=== PATIENT | male | born 1945 | race Caucasian/White ===

== ENCOUNTER 2020-11-24 16:26 | Emergency (ER) | payer MEDICARE, OTHER, SELFPAY ==
[2020-11-24 16:32] VITALS: BP 125/73; PULSE 99; RESP 16; TEMP 36.7; O2SAT 95; BMI 27.0
--- NOTE | 2020-11-24 16:49 | ED_ITS ---
HPI - Nausea/Vomiting/Diarrhea General: Chief complaint: Nausea/Vomiting/Diarrhea Stated complaint: N/V/D Time Seen by Provider: 11/24/20 16:42 History of Present Illness: HPI Narrative: The patient comes to the ER complaining of 12 hours of nausea vomiting and diarrhea. He says he thinks he had some bad chicken yesterday evening at his granddaughter's birthday constitution party where she was cooking the food. No other sick members at that constitution party. He says he is unable to keep anything down and nothing sounds tasty to him at the moment. Denies significant abdominal pain but admits nausea. MD elicited complaint: nausea, vomiting and diarrhea Onset (ago): hour(s) (12) Description of vomiting: food contents Associated nausea: Yes Associated abdominal pain: No Location of pain: None Radiation: diffuse Severity: moderate Associated symtoms: Reports nausea; Denies anxiety, change in vision, chest pain, dizziness, fatigue, headache(s) or palpitations Review of Systems General: Reports: 10 or more systems reviewed and unremarkable except in HPI and below Const: Denies: fatigue Eyes: Denies: change in vision, blurry vision or eye redness ENMT: Denies: throat pain, swelling of lips/tongue, ear or mastoid pain or nasal congestion Card: Denies: chest pain, palpitations, irregular heart rhythm, edema, dyspnea on exertion or orthopnea Resp: Denies: dyspnea, productive cough or non-productive cough GI: Reports: nausea, vomiting and diarrhea; Denies: abdominal pain : Denies: flank pain, urinary frequency or urinary urgency Musc: Denies: neck pain, back pain, extremity pain, joint pain, joint redness, limited range of motion or muscle weakness Skin/Breast: Denies: rash, pruritus, erythema, skin pain or skin tenderness Neuro: Denies: headache(s), numbness in extremities, weakness in extremities, sensory changes, difficulty walking, dizziness, confusion or Slurred speech present Psych: Denies: anxiety or depression Endo: Denies: polyuria All/Imm: Denies: urticaria, throat swelling or tongue swelling Physical Exam Const: COMMON NORMALS: no acute distress, average body habitus, patient oriented x3, no limitations, healthy appearing, alert and well nourished GENERAL APPEARANCE: cooperative, comfortable, well kempt and well developed ORIENTATION/CONSCIOUSNESS: Yes awake, Yes oriented to person, Yes oriented to place and Yes oriented to time HENMT: COMMON NORMALS: normocephalic, external ears normal and Normal external nose present HEAD & SCALP: normal to inspection and normocephalic NOSE: Normal external nose present EXTERNAL EAR: Yes external ears normal MOUTH: Normal oral and palatal mucosa present THROAT: posterior oropharynx normal Eye: COMMON NORMALS: Equal, round and reactive pupils present and EOMs intact bilaterally GENERAL EYE: appearance normal, both eyes and all related structures PUPIL: Yes Equal, round and reactive pupils present Neck/C-Spine: COMMON NORMALS: full ROM, no lymphadenopathy, no meningeal signs and no JVD GENERAL: Yes normal visual inspection Lymph: LYMPHATIC: no lymphadenopathy noted Chest: COMMONS NORMALS: normal inspection of the chest and normal palpation of entire chest wall Resp: COMMON NORMALS: normal respiratory effort, No retractions, No use of accessory muscles, clear to auscultation bilaterally and percussion normal EFFORT & INSPECTION: Yes able to speak in complete sentences AUSCULTATION: clear to auscultation bilaterally PERCUSSION: percussion normal Cardio: COMMON NORMALS: no JVD, regular rate, regular rhythm, S1 normal heart sound present, S2 normal heart sound present and Peripheral pulses 2+ throughout RATE: regular rate RHYTHM: regular rhythm HEART SOUNDS: S1 normal heart sound present and S2 normal heart sound present PERIPHERAL PULSES: Peripheral pulses 2+ throughout GI: COMMON NORMALS: Normal to inspection, nondistended, normoactive bowel sounds present, Soft to palpation, non-tender and no masses INSPECTION: Yes normal to inspection PALPATION: Yes Soft to palpation : COMMON NORMALS: Yes no CVA tenderness BLADDER/KIDNEY EXAM: Yes no CVA tenderness Back/Pelvis: COMMON NORMALS: no CVA tenderness, thoracic and lumbar spine normal to inspection, no thoracic nor lumbar tenderness and thoraco-lumbar ROM normal Extremity: COMMON NORMALS: normal to inspection, full ROM, capillary refill normal, no joint enlargement and no pedal edema GENERAL: Yes normal exam except as noted Neuro: COMMON NORMALS: patient oriented x3, CN's II-XII intact bilaterally, moves all extremities, no focal motor deficits, no sensory deficits noted and gait normal SENSORIUM/ORIENTATION: Yes alert, Yes oriented to person, Yes clarice ented to place and Yes oriented to time MENINGEAL SIGNS: Yes no meningeal signs Psych: COMMON NORMALS: mental status grossly normal, Normal thought process present, cooperative, normal affect and speech normal APPEARANCE: Yes well kempt ATTITUDE: Yes calm SPEECH: Yes normal speech THOUGHT PROCESS: Normal thought process present Skin: COMMON NORMALS: no rashes or lesions noted GENERAL SKIN EXAM: no rashes or lesions noted Course Vital Signs: Vital signs: Vital Signs Temperature 98.1 F 11/24/20 16:32 Pulse Rate 88 11/24/20 17:03 Respiratory Rate 18 11/24/20 17:03 Blood Pressure 132/67 11/24/20 17:03 Pulse Oximetry 93 11/24/20 17:03 MDM - Nausea/Vomiting/Diarrhea MDM Narrative: Medical decision making narrative: Patient came to the ER with symptoms of food poisoning. He was given Zofran, IV fluids, and Phenergan and improved and was requesting discharge. Follow-up with primary care physician in a few days. ER with worsening symptoms Lab Data: Labs: Lab Results 11/24/20 11/24/20 Range/Units 17:00 17:00 WBC 9.0 (4.0-10.0) 10^3/ uL RBC 4.91 (4.1-5.3) 10^6/u L Hgb 16.1 (11.7-16.6) g/dL Hct 47.2 (42.0-52.0) % MCV 96.1 H (80-94) fL MCH 32.8 (28.0-34.0) pg MCHC 34.1 (30.0-36.0) g/dL RDW 13.2 (12.1-15.1) % Plt Count 180 (130-400) 10^3/c mm MPV 10.6 H (7.4-10.4) fL Neut % (Auto) 92.1 % Lymph % (Auto) 4.2 % [place] % (Auto) 3.1 % Eos % (Auto) 0.1 % Baso % (Auto) 0.3 % Neut # (Auto) 8.29 H (1.8-7.7) 10^3/u L Lymph # (Auto) 0.4 L (0.8-4.8) 10^3/u L [place] # (Auto) 0.3 (0.2-0.9) 10^3/u L Eos # (Auto) 0.0 (0.0-0.8) 10^3/u L Baso # (Auto) 0.0 (0.0-0.1) 10^3/u L Nucleated RBC % (a uto) 0 % Nucleated RBCs # 0.0 /100WBC Sodium 135 L (136-145) mmol/L Potassium 3.4 L (3.5-5.1) mmol/L Chloride 98 (98-107) mmol/L Carbon Dioxide 22 (22-29) mmol/L Anion Gap 18.4 (5-19) BUN 18 (8-23) mg/dL Creatinine 0.9 (0.7-1.2) mg/dL GFR Calculation Not Reportable Glucose 124 H (65-115) mg/dL Calculated Osmolal ity 283 L (285-295) mOsm/k g Calcium 9.0 (8.5-10.5) mg/dL Total Bilirubin 0.7 (0.15-1.2) mg/dL AST 42 H (0-40) U/L ALT 32 (0-41) U/L Alkaline Phosphata se 36 L (40-130) IU/L Total Protein 7.7 (6.6-8.7) g/dL Albumin 4.1 (3.5-5.2) g/dL Globulin 3.6 (1.3-4.6) g/dL Lipase 30 (13-60) U/L Discharge Plan Discharge Patient Disposition: Home Clinical Impression: Food poisoning Condition: Stable Prescriptions: New ondansetron 4 mg tablet,disintegrating 4 mg PO Q8H 5 Days Qty: 15 RF: 0 Discharge Orders: Discharge ED (Routine); Ordered 11/24/20 Ordered By: Mikey Olivas Referrals: [facility], [Primary Care Provider] - Discharge Diet: Advance as tolerated Discharge Activity: Resume usual activity Patient Instructions: Gastroenteritis (ED), Opioid Safety, Food Poisoning - Adult Activity Restrictions/Additional Instructions: You likely have food poisoning. Please drink clear liquids and soft foods for the next several hours until you feel like you can increase to solid foods. Use Zofran to help with your nausea. Return to the ER with worsening symptoms. Follow-up with your primary care physician in a couple days to monitor improvement of your symptoms. Coding Level of Care Code ED Clam Treader for Chg Fwd Exam Comprehensive
[2020-11-24 17:03] VITALS: BP 132/67; PULSE 88; RESP 18; O2SAT 93
[2020-11-24] MEDS: ondansetron 2 mg/ML SDV 2 mL 4 MG IVP (17:04)
[2020-11-24] MEDS: ketorolac 30 mg/mL INJ 15 MG IVP (17:04)
[2020-11-24] MEDS: sodium chloride 0.9% 1,000 ML 999 ML IV (17:05)
[2020-11-24 17:13] LABS: Basophils % 0.3 %; Eosinophils % 0.1 %; Hematocrit 47.2 % (42.0-52.0); Hemoglobin 16.1 g/dL (11.7-16.6); Lymphocytes # 0.4 10^3/uL (0.8-4.8); Lymphocytes % 4.2 %; Mean Corpuscular HGB Conc 34.1 g/dL (30.0-36.0); Mean Corpuscular Hemoglobin 32.8 pg (28.0-34.0); Mean Corpuscular Volume 96.1 fL (80-94); Mean Platelet Volume 10.6 fL (7.4-10.4); Monocytes # 0.3 10^3/uL (0.2-0.9); Monocytes % 3.1 %; Neutrophils # 8.29 10^3/uL (1.8-7.7); Neutrophils % 92.1 %; Nucleated Red Blood Cells % 0 %; Platelet Count 180 10^3/cmm (130-400); Red Blood Count 4.91 10^6/uL (4.1-5.3); Red Cell Distribution Width 13.2 % (12.1-15.1)
[2020-11-24 17:40] LABS: Alanine Aminotransferase 32 U/L (0-41); Albumin Level 4.1 g/dL (3.5-5.2); Alkaline Phosphatase 36 IU/L (40-130); Anion Gap 18.4 (5-19); Aspartate Amino Transferase 42 U/L (0-40); Blood Urea Nitrogen 18 mg/dL (8-23); Carbon Dioxide 22 mmol/L (22-29); Chloride 98 mmol/L (98-107); Globulin 3.6 g/dL (1.3-4.6); Glucose 124 mg/dL (65-115); Lipase 30 U/L (13-60); Osmolality Calculated 283 mOsm/kg (285-295); Potassium 3.4 mmol/L (3.5-5.1); Sodium 135 mmol/L (136-145); Total Bilirubin 0.7 mg/dL (0.15-1.2); Total Protein 7.7 g/dL (6.6-8.7)
[2020-11-24] MEDS: promethazine 25 mg/mL SDV 1 mL 50 MG IM (19:11)
[2020-11-24 21:05] VITALS: BP 120/86; PULSE 100; RESP 17; TEMP 36.7; O2SAT 96
== END 2020-11-24 21:08 | disposition home or self-care (01) ==
PROVIDERS: Emergency Provider Family Medicine
DX: A05.9 Bacterial foodborne intoxication, unspecified (principal)
CPT/HCPCS: 80053; 83690; 85025; 96361; 96372; 96374; 96375; 99283; J1885; J2405; J2550; J7030

== ENCOUNTER 2020-11-27 16:15 | Emergency (ER) | payer MEDICARE, OTHER, SELFPAY ==
[2020-11-27 16:22] VITALS: BP 126/76; PULSE 81; RESP 16; TEMP 36.6; O2SAT 98; BMI 28.2
--- NOTE | 2020-11-27 18:57 | ED_ITS ---
HPI - Nausea/Vomiting/Diarrhea General: Chief complaint: Nausea/Vomiting/Diarrhea Stated complaint: nausea, loose stool Time Seen by Provider: 11/27/20 18:46 Source: patient Mode of arrival: ambulatory Limitations: no limitations History of Present Illness: HPI Narrative: 75-year-old male states Wednesday he started having vomiting states he had nausea and vomiting since then. He states that he has had severe vomiting that is actually improved today but he states he now has diarrhea. He states that he feels dehydrated and is concerned he has got dehydrated. He states that his daughter and his has had the same symptoms and his is here being seen as well. He denies any fever. He states he does abdominal cramping he rates a 2 out of 10. Associated nausea: Yes Associated symtoms: Reports nausea; Denies chest pain, dysuria or headache(s) Review of Systems Const: Denies: fever(s), chills, body aches or change in appetite Eyes: Denies: blurry vision or eye discomfort ENMT: Denies: throat pain or dental pain Card: Denies: chest pain Resp: Denies: dyspnea GI: Reports: abdominal pain, nausea, vomiting and diarrhea : Denies: dysuria Musc: Denies: neck pain or back pain Skin/Breast: Denies: rash Neuro: Denies: headache(s) Psych: Denies: depression [place]/Lymph: Denies: easy bruising All/Imm: Denies: urticaria Physical Exam Const: COMMON NORMALS: no acute distress, patient oriented x3 and healthy appearing HENMT: COMMON NORMALS: normocephalic and atraumatic HEAD & SCALP: normocephalic and atraumatic Eye: COMMON NORMALS: Equal, round and reactive pupils present and EOMs intact bilaterally PUPIL: Yes Equal, round and reactive pupils present Neck/C-Spine: COMMON NORMALS: full ROM and supple Chest: COMMONS NORMALS: normal inspection of the chest and normal palpation of entire chest wall Resp: COMMON NORMALS: normal respiratory effort, No retractions, No use of accessory muscles and clear to auscultation bilaterally AUSCULTATION: clear to auscultation bilaterally Cardio: COMMON NORMALS: regular rate, regular rhythm and No murmurs present (Cardio) RATE: regular rate RHYTHM: regular rhythm GI: COMMON NORMALS: Normal to inspection, nondistended, normoactive bowel sounds present, Soft to palpation, non-tender and no masses PALPATION: Yes Soft to palpation Extremity: COMMON NORMALS: normal to inspection and full ROM Neuro: COMMON NORMALS: patient oriented x3, moves all extremities and no focal motor deficits Psych: COMMON NORMALS: mental status grossly normal, Normal thought process present and cooperative THOUGHT PROCESS: Normal thought process present Skin: COMMON NORMALS: no rashes or lesions noted and no wounds GENERAL SKIN EXAM: no rashes or lesions noted Course Vital Signs: Vital signs: Vital Signs Temperature 97.9 F 11/27/20 16:22 Pulse Rate 65 11/27/20 19:25 Respiratory Rate 16 11/27/20 19:25 Blood Pressure 141/89 11/27/20 19:25 Pulse Oximetry 98 11/27/20 19:25 MDM - Nausea/Vomiting/Diarrhea MDM Narrative: Medical decision making narrative: Judson presents here with vomiting with diarrhea that is likely viral in origin. He feels much improved after IV fluids. He did provide a stool sample and will send off for culture. Patient is stable for discharge. He has slight hypokalemia and will put him on a course of potassium. Lab Data: Labs: Lab Results 11/27/20 11/27/20 11/27/20 Range/Units 19:10 19:10 19:10 WBC 7.2 (4.0-10.0) 10^3/ uL RBC 4.88 (4.1-5.3) 10^6/u L Hgb 15.8 (11.7-16.6) g/dL Hct 46.4 (42.0-52.0) % MCV 95.1 H (80-94) fL MCH 32.4 (28.0-34.0) pg MCHC 34.1 (30.0-36.0) g/dL RDW 13.0 (12.1-15.1) % Plt Count 192 (130-400) 10^3/c mm MPV 10.4 (7.4-10.4) fL Neut % (Auto) 69.5 % Lymph % (Auto) 19.5 % [place] % (Auto) 7.8 % Eos % (Auto) 2.6 % Baso % (Auto) 0.3 % Neut # (Auto) 5.02 (1.8-7.7) 10^3/u L Lymph # (Auto) 1.4 (0.8-4.8) 10^3/u L [place] # (Auto) 0.6 (0.2-0.9) 10^3/u L Eos # (Auto) 0.2 (0.0-0.8) 10^3/u L Baso # (Auto) 0.0 (0.0-0.1) 10^3/u L Nucleated RBC % (a uto) 0 % Nucleated RBCs # 0.0 /100WBC Sodium 137 (136-145) mmol/L Potassium 3.2 L (3.5-5.1) mmol/L Chloride 96 L (98-107) mmol/L Carbon Dioxide 30 H (22-29) mmol/L Anion Gap 14.2 (5-19) BUN 12 (8-23) mg/dL Creatinine 0.9 (0.7-1.2) mg/dL GFR Calculation Not Reportable Glucose 101 (65-115) mg/dL Calculated Osmolal ity 284 L (285-295) mOsm/k g Lactic Acid 1.6 (0.5-2.2) mmol/L Calcium 8.2 L (8.5-10.5) mg/dL Total Bilirubin 0.7 (0.15-1.2) mg/dL AST 49 H (0-40) U/L ALT 36 (0-41) U/L Alkaline Phosphata se 39 L (40-130) IU/L Ammonia (16-60) umol/L Total Protein 7.7 (6.6-8.7) g/dL Albumin 3.9 (3.5-5.2) g/dL Globulin 3.8 (1.3-4.6) g/dL Lipase 106 H (13-60) U/L Urine Color (Yellow) Urine Appearance (CLEAR) Urine pH (5-7) Ur Specific Gravit y (1.005-1.030) Urine Protein (Negative) Urine Glucose (UA) (Normal) Urine Ketones (Negative) Urine Blood (Negative) Urine Nitrate (Negative) Urine Bilirubin (Negative) Urine Urobilinogen (Negative) mg/dL Ur Leukocyte Amira ase (Negative) 11/27/20 11/27/20 Range/Units 19:10 19:27 WBC (4.0-10.0) 10^3/ uL RBC (4.1-5.3) 10^6/u L Hgb (11.7-16.6) g/dL Hct (42.0-52.0) % MCV (80-94) fL MCH (28.0-34.0) pg MCHC (30.0-36.0) g/dL RDW (12.1-15.1) % Plt Count (130-400) 10^3/c mm MPV (7.4-10.4) fL Neut % (Auto) % Lymph % (Auto) % [place] % (Auto) % Eos % (Auto) % Baso % (Auto) % Neut # (Auto) (1.8-7.7) 10^3/u L Lymph # (Auto) (0.8-4.8) 10^3/u L [place] # (Auto) (0.2-0.9) 10^3/u L Eos # (Auto) (0.0-0.8) 10^3/u L Baso # (Auto) (0.0-0.1) 10^3/u L Nucleated RBC % (a uto) % Nucleated RBCs # /100WBC Sodium (136-145) mmol/L Potassium (3.5-5.1) mmol/L Chloride (98-107) mmol/L Carbon Dioxide (22-29) mmol/L Anion Gap (5-19) BUN (8-23) mg/dL Creatinine (0.7-1.2) mg/dL GFR Calculation Glucose (65-115) mg/dL Calculated Osmolal ity (285-295) mOsm/k g Lactic Acid (0.5-2.2) mmol/L Calcium (8.5-10.5) mg/dL Total Bilirubin (0.15-1.2) mg/dL AST (0-40) U/L ALT (0-41) U/L Alkaline Phosphata se (40-130) IU/L Ammonia 29 (16-60) umol/L Total Protein (6.6-8.7) g/dL Albumin (3.5-5.2) g/dL Globulin (1.3-4.6) g/dL Lipase (13-60) U/L Urine Color Yellow (Yellow) Urine Appearance Clear (CLEAR) Urine pH 6.5 (5-7) Ur Specific Gravit y 1.010 (1.005-1.030) Urine Protein Neg (Negative) Urine Glucose (UA) Norm (Normal) Urine Ketones Negative (Negative) Urine Blood Neg (Negative) Urine Nitrate Negative (Negative) Urine Bilirubin Neg (Negative) Urine Urobilinogen Norm (Negative) mg/dL Ur Leukocyte Amira ase Negative (Negative) Discharge Plan Discharge Patient Disposition: Home Clinical Impression: Vomiting, Diarrhea, Hypokalemia Condition: Stable Prescriptions: New potassium chloride 20 mEq packet 20 meq PO BID Qty: 10 RF: 0 No Action atorvastatin 20 mg tablet 20 mg PO DAILY RF: 0 chlorthalidone 25 mg tablet 12.5 mg PO DAILY RF: 0 potassium citrate 10 mEq (1,080 mg) tablet extended release 10 meq PO DAILY RF: 0 timolol maleate 0.5 % drops See Rx Instructions .ROUTE .COMPLEX RF: 0 ondansetron 4 mg tablet,disintegrating 4 mg PO Q8H PRN (Reason: NAUSEA/VOMITING) RF: 0 Discharge Orders: Discharge ED (Routine); Ordered 11/27/20 Ordered By: Deena Bolanos Referrals: [facility], [Primary Care Provider] - Discharge Diet: Advance as tolerated Discharge Activity: Resume usual activity Patient Instructions: Acute Nausea and Vomiting (ED), Acute Diarrhea (ED) Coding Level of Care Code ED Chronometer Assembler And Adjuster for Shawn Fwyisel Exam Comprehensive
[2020-11-27] MEDS: diphenoxylate/atropine Tablet 2 TAB PO (19:03)
[2020-11-27] MEDS: ondansetron 2 mg/ML SDV 2 mL 4 MG IVP (19:14)
[2020-11-27] MEDS: sodium chloride 0.9% 1,000 ML 999 ML IV (19:15)
[2020-11-27 19:25] VITALS: BP 141/89; PULSE 65; RESP 16; O2SAT 98
[2020-11-27 19:33] LABS: Basophils % 0.3 %; Eosinophils # 0.2 10^3/uL (0.0-0.8); Eosinophils % 2.6 %; Hematocrit 46.4 % (42.0-52.0); Hemoglobin 15.8 g/dL (11.7-16.6); Lymphocytes # 1.4 10^3/uL (0.8-4.8); Lymphocytes % 19.5 %; Mean Corpuscular HGB Conc 34.1 g/dL (30.0-36.0); Mean Corpuscular Hemoglobin 32.4 pg (28.0-34.0); Mean Corpuscular Volume 95.1 fL (80-94); Mean Platelet Volume 10.4 fL (7.4-10.4); Monocytes # 0.6 10^3/uL (0.2-0.9); Monocytes % 7.8 %; Neutrophils # 5.02 10^3/uL (1.8-7.7); Neutrophils % 69.5 %; Nucleated Red Blood Cells % 0 %; Platelet Count 192 10^3/cmm (130-400); Red Blood Count 4.88 10^6/uL (4.1-5.3); White Blood Count 7.2 10^3/uL (4.0-10.0)
[2020-11-27 19:51] LABS: Add Urine Microscopic? NO
[2020-11-27 19:59] LABS: Bilirubin Urine Neg (Negative); Blood Urine Neg (Negative); Glucose Urine UA Norm (Normal); Ketones Urine Negative (Negative); Leukocyte Esterase Urine Negative (Negative); Nitrate Urine Negative (Negative); Protein Urine Neg (Negative); Urine Appearance Clear (CLEAR); Urine Color Yellow (Yellow); Urobilinogen Urine Norm (Negative); pH Urine 6.5 (5-7)
[2020-11-27 20:00] VITALS: BP 131/72; PULSE 75; RESP 16; O2SAT 98
[2020-11-27 20:09] LABS: Lactic Sepsis W/Reflex 1.6 mmol/L (0.5-2.2)
[2020-11-27 20:10] LABS: Alanine Aminotransferase 36 U/L (0-41); Albumin Level 3.9 g/dL (3.5-5.2); Alkaline Phosphatase 39 IU/L (40-130); Anion Gap 14.2 (5-19); Aspartate Amino Transferase 49 U/L (0-40); Blood Urea Nitrogen 12 mg/dL (8-23); Calcium 8.2 mg/dL (8.5-10.5); Carbon Dioxide 30 mmol/L (22-29); Chloride 96 mmol/L (98-107); Globulin 3.8 g/dL (1.3-4.6); Glucose 101 mg/dL (65-115); Lipase 106 U/L (13-60); Osmolality Calculated 284 mOsm/kg (285-295); Potassium 3.2 mmol/L (3.5-5.1); Sodium 137 mmol/L (136-145); Total Bilirubin 0.7 mg/dL (0.15-1.2); Total Protein 7.7 g/dL (6.6-8.7)
[2020-11-27 20:16] LABS: Ammonia 29 umol/L (16-60)
[2020-11-27 20:30] VITALS: BP 145/69; PULSE 70; RESP 16; O2SAT 97
[2020-11-27] MEDS: potassium chloride ER 20 mEq Tablet 40 MEQ PO (20:52)
[2020-11-27 21:01] VITALS: BP 145/69; PULSE 72; RESP 16; TEMP 36.6; O2SAT 97
== END 2020-11-27 21:01 | disposition home or self-care (01) ==
PROVIDERS: Physician Assistant; Emergency Provider Emergency Medicine
DX: R11.10 Vomiting, unspecified (principal); R19.7 Diarrhea, unspecified; E87.6 Hypokalemia
CPT/HCPCS: 36415; 80053; 81003; 82140; 83605; 83690; 85025; 87493; 87506; 96361; 96374; 99283; J2405; J7030

== ENCOUNTER 2021-02-03 10:59 | Emergency (ER) | payer MEDICARE, OTHER, SELFPAY ==
[2021-02-03 11:43] VITALS: BP 135/69; PULSE 69; RESP 17; TEMP 36.7; O2SAT 97; BMI 27.4
--- NOTE | 2021-02-03 12:20 | ECG_ITS ---
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 Measurements Intervals [place] Rate: 55 P: 70 LA: 182 QRS: 44 QRSD: 87 T: 63 QT: 416 QTc: 400 Interpretive Statements SINUS BRADYCARDIA No previous ECG available for comparison Electronically Signed On 02-05-2021 7:59:42 CDT by Eyal Duke M.D. [id number]
--- NOTE | 2021-02-03 13:54 | XRR_ITS ---
PROCEDURE INFORMATION: Exam: XR Chest Exam date and time: 02/03/2021 1:58 PM Age: 75 years old Clinical indication: Cough; Patient HX: PT denies chest complaint, tingling left arm TECHNIQUE: Imaging protocol: XR of the chest. Views: 1 view. COMPARISON: No relevant prior studies available. FINDINGS: Lungs: Unremarkable. No consolidation. Pleural spaces: Unremarkable. No pleural effusion. No pneumothorax. Heart/Mediastinum: Unremarkable. No cardiomegaly. Bones/joints: Unremarkable. XR/XR chest 1V portable [id number] IMPRESSION: No acute findings.
--- NOTE | 2021-02-03 13:54 | CTR_ITS ---
PROCEDURE INFORMATION: Exam: CT Head Without Contrast Exam date and time: 02/03/2021 2:08 PM Age: 75 years old Clinical indication: Patient HX: Blurred vision, left arm pain, headache, HX of TIA TECHNIQUE: Imaging protocol: Computed tomography of the head without contrast. Radiation optimization: All CT scans at this facility use at least one of these dose optimization techniques: automated exposure control; mA and/or kV adjustment per patient size (includes targeted exams where dose is matched to clinical indication); or iterative reconstruction. COMPARISON: No relevant prior studies available. RADIATION DOSE METRICS: Total DLP (mGy-cm): 1637.56 FINDINGS: Brain: No acute appearing brain parenchymal abnormality. No intracranial hemorrhage. No extraaxial fluid collections. 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 There is diffuse cerebral atrophy. Cerebral ventricles: No hydrocephalus. Bones/joints: No calvarial fracture. Paranasal sinuses: The visualized paranasal sinuses are aerated. Mastoid air cells: The visualized mastoid air cells are aerated. Soft tissues: No acute soft tissue abnormality. CT/CT head wo con* [id number] IMPRESSION: No acute abnormality. Radiation Dose CTDIVOL = (mGy): DLP = 1637.56 (mGy-cm)
--- NOTE | 2021-02-03 13:55 | CTR_ITS ---
PROCEDURE INFORMATION: Exam: CT Cervical Spine Without Contrast Exam date and time: 02/03/2021 2:08 PM Age: 75 years old Clinical indication: Numbness; Prior surgery; Additional info: Trauma TECHNIQUE: Imaging protocol: Computed tomography images of the cervical spine without contrast. Radiation optimization: All CT scans at this facility use at least one of these dose optimization techniques: automated exposure control; mA and/or kV adjustment per patient size (includes targeted exams where dose is matched to clinical indication); or iterative reconstruction. COMPARISON: CR XR cervical spine 4-5V [id number] 10/03/2020 4:24 PM RADIATION DOSE METRICS: Total DLP (mGy-cm): 707.52 FINDINGS: Bones/joints: Fusion of the C5 and C6 vertebral bodies. Mild grade 1 degenerative spondylolisthesis at C4-C5. The facets align normally though there is multilevel bilateral facet arthropathy with an upper cervical spine predominance.The craniocervical junction is normal. The atlantodens interval is not widened. No acute fracture. Discs/Spinal canal/Neural foramina: Multilevel disc and uncovertebral joint degeneration, most prominently at C6-C7. Mild osseous central canal stenosis at C5-C6 and C6-C7. Degenerative osseous foraminal stenosis most severe on the right at C4-C5 and on the left at C3-C4. Lungs: The lung apices are normal. Soft tissues: No acute soft tissue abnormality. CT/CT cervical spin wo con* [id number] IMPRESSION: No acute osseous abnormality. Radiation Dose CTDIVOL = (mGy): DLP = 707.52 (mGy-cm)
--- NOTE | 2021-02-03 13:55 | W.ED.GENADLT ---
HPI - General Adult General: Chief complaint: General Medical Stated complaint: UNCOMFORTNESS IN L ARM Time Seen by Provider: 02/03/21 13:52 History of Present Illness: HPI narrative: This patient is a 75-year-old male who presents to the emergency department for concerns he might of had a TIA. 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 Patient states that past and he drove himself home. Patient also states that he has had issues with numbness to his left hand but this has been chronic for some time since he has had neck surgery. Patient states but this morning and upper posterior side of his left arm started have some numbness and a weird sensation. Patient is concerned because he did have a TIA approximately 10 years ago. We will do medical evaluation treat as needed. Onset (ago): day(s) Associated symptoms: Deny chest pain, dyspnea, headache(s), nausea, rash, palpitations or vomiting Review of Systems General: Reports: 10 or more systems reviewed and unremarkable except in HPI and below Const: Denies: fever(s), chills, body aches or fatigue Eyes: Denies: change in vision or blurry vision ENMT: Denies: throat pain, hoarseness or mouth pain Card: Denies: chest pain or palpitations Resp: Denies: dyspnea GI: Denies: nausea or vomiting : Denies: flank pain, dysuria, urinary frequency, urinary urgency or urinary hesitancy Musc: Denies: neck pain, back pain, extremity pain, extremity swelling, joint pain, joint swelling, joint redness, joint warmth or limited range of motion Skin/Breast: Denies: rash Neuro: Denies: headache(s) Psych: Denies: anxiety or depression Physical Exam Const: COMMON NORMALS: no acute distress, average body habitus, patient oriented x3, no limitations, healthy appearing, alert and well nourished HENMT: COMMON NORMALS: normocephalic, atraumatic, hearing grossly normal bilaterally, external ears normal, EAC's normal, TM's normal bilaterally, Normal external nose present, Normal nasal mucous membranes and turbinates present, moist oral mucous membranes, oropharynx normal, dentition normal and gingiva normal HEAD & SCALP: normocephalic and atraumatic NOSE: Normal external nose present and Normal nasal mucous membranes and turbinates present EXTERNAL EAR: Yes external ears normal EXTERNAL AUDITORY CANAL: EAC's normal TYMPANIC MEMBRANE: TM's normal bilaterally Neck/C-Spine: COMMON NORMALS: full ROM, no lymphadenopathy, supple, no meningeal signs, no JVD, Thyroid normal and No carotid bruits THYROID: Thyroid normal Chest: COMMONS NORMALS: normal inspection of the chest, normal palpation of entire chest wall, normal inspection of the breasts and normal palpation of the breasts Breast/axilla inspection: Yes normal inspection of the breasts BREAST/AXILLA PALPATION: Yes normal palpation of the breasts Resp: COMMON NORMALS: normal respiratory effort, No retractions, No use of accessory muscles, clear to auscultation bilaterally and percussion normal AUSCULTATION: clear to auscultation bilaterally PERCUSSION: percussion normal Cardio: COMMON NORMALS: no JVD, regular rate, regular rhythm, S1 normal heart sound present, S2 normal heart sound present, No gallops present (Cardio), No clicks present (Cardio), No murmurs present (Cardio), No rub (Cardio) and Peripheral pulses 2+ throughout RATE: regular rate RHYTHM: regular rhythm HEART SOUNDS: S1 normal heart sound present and S2 normal heart sound present PERIPHERAL PULSES: Peripheral pulses 2+ throughout GI: COMMON NORMALS: Normal to inspection, nondistended, normoactive bowel sounds present, Soft to palpation, non-tender, No hepatosplenomegaly present, no masses and no bruits PALPATION: Yes Soft to palpation and Yes No hepatosplenomegaly present : COMMON NORMALS: Yes no CVA tenderness BLADDER/KIDNEY EXAM: Yes no CVA tenderness Back/Pelvis: COMMON NORMALS: no CVA tenderness, thoracic and lumbar spine normal to inspection, no thoracic nor lumbar tenderness, thoraco-lumbar ROM normal and straight leg raise negative bilaterally Extremity: COMMON NORMALS: normal to inspection, full ROM, capillary refill normal, no joint enlargement, no clubbing, cyanosis or edema, no calf tenderness and no pedal edema Neuro: COMMON NORMALS: patient oriented x3 SENSORIUM/ORIENTATION: Yes alert MENINGEAL SIGNS: Yes no meningeal signs Course Reevaluation(s): Reevaluation #1: Negative evaluation emergency department. Patient states he feels normal and has had no complaints today. Time: 15:50 Vital Signs: Vital signs: Vital Signs Temperature 98.1 F 02/03/21 11:43 Pulse Rate 69 02/03/21 11:43 Respiratory Rate 17 02/03/21 11:43 Blood Pressure 135/69 02/03/21 11:43 Pulse Oximetry 97 02/03/21 11:43 MDM - General Adult MDM Narrative: Medical decision making narrative: Patient has a history of TIA. Also complains of radiculopathy related to the neck surgery. Patient states had an episode yesterday where he felt a little confused for about [address] himself home and has had no symptoms today. Patient is a negative evaluation in the emergency department. Patient negative CT scan. Patient is to follow-up with his primary care physician in 2 to 3 days and continue his home meds aspirin and home medications. Patient states understanding he is discharged home per his request Differential Diagnosis: Differential Diagnosis: TIA, CVA, radiculopathy, Medical Records: Attestation: I reviewed the patient's medical records. Lab Data: Attestation: I reviewed the patient's lab results. Labs: Lab Results 02/03/21 02/03/21 02/03/21 Range/Units 14:34 14:34 14:34 WBC 6.5 (4.0-10.0) 10^3/ uL RBC 4.63 (4.1-5.3) 10^6/u L Hgb 15.3 (11.7-16.6) g/dL Hct 45.4 (42.0-52.0) % MCV 98.1 H (80-94) fL MCH 33.0 (28.0-34.0) pg MCHC 33.7 (30.0-36.0) g/dL RDW 13.7 (12.1-15.1) % Plt Count 177 (130-400) 10^3/c mm MPV 10.7 H (7.4-10.4) fL Neut % (Auto) 64.3 % Lymph % (Auto) 24.2 % Edmonson % (Auto) 7.3 % Eos % (Auto) 3.1 % Baso % (Auto) 0.8 % Neut # (Auto) 4.15 (1.8-7.7) 10^3/u L Lymph # (Auto) 1.6 (0.8-4.8) 10^3/u L Edmonson # (Auto) 0.5 (0.2-0.9) 10^3/u L Eos # (Auto) 0.2 (0.0-0.8) 10^3/u L Baso # (Auto) 0.1 (0.0-0.1) 10^3/u L Nucleated RBC % (a uto) 0 % Nucleated RBCs # 0.0 /100WBC PT (12.1-14.9) SECO NDS INR (0.8-1.2) APTT (23.9-36.7) SECO NDS Sodium 138 (136-145) mmol/L Potassium 4.0 (3.5-5.1) mmol/L Chloride 102 (98-107) mmol/L Carbon Dioxide 28 (22-29) mmol/L Anion Gap 12.0 (5-19) BUN 10 (8-23) mg/dL Creatinine 0.8 (0.7-1.2) mg/dL GFR Calculation Not Reportable Glucose 100 (65-115) mg/dL Calculated Osmolal ity 285 (285-295) mOsm/k g Calcium 8.5 (8.5-10.5) mg/dL Total Bilirubin 0.4 (0.15-1.2) mg/dL AST 22 (0-40) U/L ALT 24 (0-41) U/L Alkaline Phosphata se 37 L (40-130) IU/L Troponin T Baselin e 9 (0-15) ng/L Total Protein 7.1 (6.6-8.7) g/dL Albumin 4.1 (3.5-5.2) g/dL Globulin 3.0 (1.3-4.6) g/dL 02/03/21 Range/Units 14:34 WBC (4.0-10.0) 10^3/ uL RBC (4.1-5.3) 10^6/u L Hgb (11.7-16.6) g/dL Hct (42.0-52.0) % MCV (80-94) fL MCH (28.0-34.0) pg MCHC (30.0-36.0) g/dL RDW (12.1-15.1) % Plt Count (130-400) 10^3/c mm MPV (7.4-10.4) fL Neut % (Auto) % Lymph % (Auto) % Edmonson % (Auto) % Eos % (Auto) % Baso % (Auto) % Neut # (Auto) (1.8-7.7) 10^3/u L Lymph # (Auto) (0.8-4.8) 10^3/u L Edmonson # (Auto) (0.2-0.9) 10^3/u L Eos # (Auto) (0.0-0.8) 10^3/u L Baso # (Auto) (0.0-0.1) 10^3/u L Nucleated RBC % (a uto) % Nucleated RBCs # /100WBC PT 13.90 (12.1-14.9) SECO NDS INR 1.04 (0.8-1.2) APTT 29.0 (23.9-36.7) SECO NDS Sodium (136-145) mmol/L Potassium (3.5-5.1) mmol/L Chloride (98-107) mmol/L Carbon Dioxide (22-29) mmol/L Anion Gap (5-19) BUN (8-23) mg/dL Creatinine (0.7-1.2) mg/dL GFR Calculation Glucose (65-115) mg/dL Calculated Osmolal ity (285-295) mOsm/k g Calcium (8.5-10.5) mg/dL Total Bilirubin (0.15-1.2) mg/dL AST (0-40) U/L ALT (0-41) U/L Alkaline Phosphata se (40-130) IU/L Troponin T Baselin e (0-15) ng/L Total Protein (6.6-8.7) g/dL Albumin (3.5-5.2) g/dL Globulin (1.3-4.6) g/dL Imaging Data^: CXR: Attestation: I personally reviewed and interpreted this imaging study as follows: Radiologist's impression: IMPRESSION: No acute abnormality. CT Head: Attestation: I personally reviewed and interpreted this imaging study as follows: Radiologist's impression: IMPRESSION: No acute abnormality. Ct Cervical Spine: Attestation: I personally reviewed and interpreted this imaging study as follows: Radiologist's impression: IMPRESSION: No acute osseous abnormality. EKG Data^: EKG 1: Attestation: I personally reviewed and interpreted this EKG as follows: EKG interpretation date: 02/03/21 EKG interpretation time: 13:55 Prior EKG tracings: not available for review Interpretation: Sinus bradycardia heart rate 55 otherwise normal EKG Computer generated interpretation: Chest X-Ray 02/03/21 13:54 IMPRESSION: No acute findings. Head CT 02/03/21 13:54 IMPRESSION: No acute abnormality. Radiation Dose CTDIVOL = (mGy): DLP = 1637.56 (mGy-cm) Cervical Spine CT 02/03/21 13:55 IMPRESSION: No acute osseous abnormality. Radiation Dose CTDIVOL = (mGy): DLP = 707.52 (mGy-cm) Discharge Plan Discharge Patient Disposition: Home Clinical Impression: Radiculopathy affecting upper extremity, History of TIAs Condition: Stable Prescriptions: No Action aspirin 325 mg Tablet 325 mg PO BEDTIME RF: 0 Vitamin D3 50 mcg (2,000 unit) Tablet 2,000 unit PO BID RF: 0 atorvastatin 20 mg tablet 20 mg PO QAM RF: 0 chlorthalidone 25 mg tablet 12.5 mg PO QAM RF: 0 potassium citrate 10 mEq (1,080 mg) tablet extended release 10 meq PO QPM RF: 0 timolol maleate 0.5 % drops 1 drp ophthalmic (eye) BEDTIME RF: 0 ondansetron 4 mg tablet,disintegrating 4 mg PO Q8H PRN (Reason: NAUSEA/VOMITING) RF: 0 Discharge Orders: Discharge ED (Routine); Ordered 02/03/21 Ordered By: Gael Beckham Discharge Diet: Advance as tolerated Discharge Activity: Resume usual activity Patient Instructions: Opioid Safety Activity Restrictions/Additional Instructions: Continue all meds at home. Follow-up with your primary care physician in 2 to 3 days. Coding Level of Care Code ED Forensic Ballistics Expert for Dayanarag Fwd Exam Comprehensive
[2021-02-03 14:42] LABS: Basophils # 0.1 10^3/uL (0.0-0.1); Basophils % 0.8 %; Eosinophils # 0.2 10^3/uL (0.0-0.8); Eosinophils % 3.1 %; Hematocrit 45.4 % (42.0-52.0); Hemoglobin 15.3 g/dL (11.7-16.6); Lymphocytes # 1.6 10^3/uL (0.8-4.8); Lymphocytes % 24.2 %; Mean Corpuscular HGB Conc 33.7 g/dL (30.0-36.0); Mean Corpuscular Volume 98.1 fL (80-94); Mean Platelet Volume 10.7 fL (7.4-10.4); Monocytes # 0.5 10^3/uL (0.2-0.9); Monocytes % 7.3 %; Neutrophils # 4.15 10^3/uL (1.8-7.7); Neutrophils % 64.3 %; Nucleated Red Blood Cells % 0 %; Platelet Count 177 10^3/cmm (130-400); Red Blood Count 4.63 10^6/uL (4.1-5.3); Red Cell Distribution Width 13.7 % (12.1-15.1); White Blood Count 6.5 10^3/uL (4.0-10.0)
[2021-02-03 15:02] LABS: Alanine Aminotransferase 24 U/L (0-41); Albumin Level 4.1 g/dL (3.5-5.2); Alkaline Phosphatase 37 IU/L (40-130); Aspartate Amino Transferase 22 U/L (0-40); Blood Urea Nitrogen 10 mg/dL (8-23); Calcium 8.5 mg/dL (8.5-10.5); Carbon Dioxide 28 mmol/L (22-29); Chloride 102 mmol/L (98-107); Glucose 100 mg/dL (65-115); Osmolality Calculated 285 mOsm/kg (285-295); Sodium 138 mmol/L (136-145); Total Bilirubin 0.4 mg/dL (0.15-1.2); Total Protein 7.1 g/dL (6.6-8.7)
[2021-02-03 15:03] LABS: Troponin(5th) Baseline 9 ng/L (0-15)
[2021-02-03 15:16] LABS: INR 1.04 (0.8-1.2)
[2021-02-03 15:56] VITALS: BP 132/70; PULSE 55; RESP 18; O2SAT 99
== END 2021-02-03 16:02 | disposition home or self-care (01) ==
PROVIDERS: Nurse Practitioner Family; Emergency Provider Emergency Medicine
DX: M54.10 Radiculopathy, site unspecified (principal); Z86.73 Personal history of transient ischemic attack (TIA), and cerebral infarction without residual deficits; Z79.82 Long term (current) use of aspirin
CPT/HCPCS: 36415; 70450; 71045; 72125; 80053; 84484; 85025; 85610; 85730; 93005; 99283

== ENCOUNTER 2022-02-21 20:10 | Emergency (ER) | payer MEDICARE, OTHER, SELFPAY ==
--- NOTE | 2022-02-21 20:12 | XRR_ITS ---
PROCEDURE INFORMATION: Exam: XR Left Knee Exam date and time: 02/21/2022 8:44 PM Age: 76 years old Clinical indication: Trauma. Hyperextended left knee. Sprain or strain of the patella. TECHNIQUE: Imaging protocol: XR Left knee. Views: 3 views. COMPARISON: No relevant prior studies available. FINDINGS: Bones/joints: [id number] primary osteoarthritis at the knee with moderate joint effusion. No acute fracture, dislocation or subluxation is seen. No periosteal reaction or supsicious bone lesion. Soft tissues: The extensor mechanism is overall intact. Mild ventral soft tissue swelling. XR/XR knee LT 3V* [id number] IMPRESSION: 1. Mild ventral soft tissue swelling. 2. [id number] primary osteoarthritis at the knee with moderate joint effusion. 3. No acute fracture is identified. 4. Consider MRI to further assess if clinically warranted.
[2022-02-21 20:17] VITALS: BP 174/70; PULSE 67; RESP 16; TEMP 36.2; O2SAT 97
--- NOTE | 2022-02-21 20:26 | ED_ITS ---
HPI - Extremity Problem General: Chief complaint: Extremity Injury, Lower Stated complaint: L knee injury Time Seen by Provider: 02/21/22 20:21 Source: patient Mode of arrival: ambulatory Limitations: no limitations History of Present Illness: 76-year-old male states that he was push mowing his yard today before the rain and got here this roughly 5 hours ago. He states that he had stepped backwards it was about a 12 inch ledge and it relies and stepped and hyperextended his left knee states he felt a pop in his knee and has been having some swelling and pain since then. States pain sharp in nature rates it a 5 out of 10 much worse with trying to ambulate improved with rest denies any hip pain or any other injuries. Associated symptoms: Deny chest pain, fever(s) or rash Review of Systems Const: Denies: fever(s), chills, body aches or change in appetite Eyes: Denies: blurry vision or eye discomfort ENMT: Denies: throat pain or dental pain Card: Denies: chest pain Resp: Denies: dyspnea GI: Denies: abdominal pain, nausea, vomiting or diarrhea : Denies: dysuria Musc: Reports: extremity pain Skin/Breast: Denies: rash Neuro: Denies: headache(s) Psych: Denies: depression Keegan/Lymph: Denies: easy bruising All/Imm: Denies: urticaria PFSH ED PFSH: Surgical History (Updated 02/21/22 @ 20:28 by Deena Bolanos MD) History of right knee joint replacement Social History Smoking and tobacco status: never smoked Alcohol intake: never Physical Exam Const: COMMON NORMALS: no acute distress, patient oriented x3 and healthy appearing HENMT: COMMON NORMALS: normocephalic and atraumatic HEAD & SCALP: normocephalic and atraumatic Eye: COMMON NORMALS: Equal, round and reactive pupils present and EOMs intact bilaterally PUPIL: Yes Equal, round and reactive pupils present Neck/C-Spine: COMMON NORMALS: full ROM and supple Chest: COMMONS NORMALS: normal inspection of the chest Resp: COMMON NORMALS: normal respiratory effort Cardio: COMMON NORMALS: regular rate, regular rhythm and No murmurs present (Cardio) RATE: regular rate RHYTHM: regular rhythm GI: INSPECTION: Yes normal to inspection Extremity: NARRATIVE EXTREMITY EXAM: Tenderness to left knee able to range of motion but does have pain with range of motion distal pulses and sensation intact Neuro: COMMON NORMALS: patient oriented x3, moves all extremities and no focal motor deficits Psych: COMMON NORMALS: mental status grossly normal, Normal thought process present and cooperative THOUGHT PROCESS: Normal thought process present Skin: COMMON NORMALS: no rashes or lesions noted and no wounds GENERAL SKIN EXAM: no rashes or lesions noted Course Vital Signs: Vital signs: Vital Signs Temperature 97.2 F L 02/21/22 20:17 Pulse Rate 67 02/21/22 20:17 Respiratory Rate 16 02/21/22 20:17 Blood Pressure 174/70 02/21/22 20:17 Pulse Oximetry 97 02/21/22 20:17 MDM - Extremity (Nontraumatic) Medical Decision Making Patient presents here with a knee sprain to his left knee x-ray shows no signs of fracture he could have ligamentous injury we will place him in a knee immobilizer he is to use crutches weight-bear as tolerated and follow-up with orthopedics return if worsening. Discharge Plan Discharge Patient Disposition: Home Clinical Impression: Left knee sprain Condition: Stable Prescriptions: New Naprosyn 500 mg tablet 500 mg PO BID PRN (Reason: pain) Qty: 20 0RF No Action aspirin 325 mg Tablet 325 mg PO BEDTIME 0RF Vitamin D3 50 mcg (2,000 unit) Tablet 2,000 unit PO BID 0RF atorvastatin 20 mg tablet 20 mg PO QAM 0RF potassium citrate 10 mEq (1,080 mg) tablet extended release 10 meq PO QPM 0RF timolol maleate 0.5 % drops 1 drp ophthalmic (eye) BEDTIME 0RF Rx Instructions: both eyes ondansetron 4 mg tablet,disintegrating 4 mg PO Q8H PRN (Reason: NAUSEA/VOMITING) 0RF Discharge Orders: Discharge ED (Routine); Ordered 02/21/22 Ordered By: Deena Bolanos Referrals: Christiano Sy DO [Physician] - 1-3 days Discharge Diet: Advance as tolerated Discharge Activity: Resume usual activity Patient Instructions: Knee Sprain (ED) Coding Level of Care Code ED Visual Basic .Net Developer for g Fwd Exam Comprehensive
[2022-02-21] MEDS: HYDROcodone-acetaminophen 5-325 mg Tablet 1 TAB PO (20:32)
--- NOTE | 2022-02-24 10:27 | DCPLANNER ---
Addendum entered by Rafaela Cedeno 05/26/22 14:29: Patient had a follow up appointment scheduled with ortho - patient did attend appointment. Addendum entered by Rafaela Cedeno 02/26/22 14:13: Patient has a follow up appointment scheduled for Saturday, January 01, 2022 at 9:30 with Sumanth Bartlett. Clinic will call patient with appointment information. Original Note: team manager had message to schedule a follow up appointment for patient with ortho. team manager sent patients information to the front office staff at ortho. Patients information will be printed and reviewed. Clinic will call patient with appointment information.
== END 2022-02-21 21:04 | disposition home or self-care (01) ==
PROVIDERS: Emergency Provider Emergency Medicine
DX: S83.92XA Sprain of unspecified site of left knee, initial encounter (principal); X50.1XXA Overexertion from prolonged static or awkward postures, initial encounter
CPT/HCPCS: 73562; 99283; E0114

== ENCOUNTER → 2022-03-03 09:11 | Outpatient (BNVA) | payer MEDICARE, OTHER, SELFPAY | PROVIDERS: Referring Provider Emergency Medicine; Visit Provider Nurse Practitioner Family | DX: S89.92XA Unspecified injury of left lower leg, initial encounter (principal); X50.1XXA Overexertion from prolonged static or awkward postures, initial encounter; M25.562 Pain in left knee | CPT/HCPCS: 73560; 73565; 99203; 99204 ==

== ENCOUNTER 2022-03-12 06:38 | Outpatient (CLI) | payer MEDICARE, OTHER, SELFPAY ==
[2022-03-12 07:03] VITALS: BMI 27.8
--- NOTE | 2022-03-12 07:06 | ECG_ITS ---
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 Interpretive Statements NAME OF STUDY: LEXISCAN SESTAMIBI STRESS TEST INDICATION: Chest Pain PROCEDURE: At the baseline, the blood pressure was 151/90 mmHg, oxygen saturation 98% with a heart rate of 52 bpm. The electrocardiogram showed sinus bradycardia, normal axis, no significant ST-T wave changes. The Lexiscan was infused over a period of 20 seconds. A total of 0.4 milligrams of Lexiscan was infused. The stress phase was continued for a total of 5 minutes. Heart rate at the end of the stress phase was 64 bpm, oxygen saturation 97% with a blood pressure of 161/75 mmHg. The EKG at the peak infusion revealed sinus rhythm with no significant ST-T wave changes. Sestamibi was injected 20 seconds after the Lexiscan infusion. Blood pressure at the end of the recovery phase was 152/69 mmHg, oxygen saturation 97% with a heart rate of 56 beats per minute. CONCLUSION: 1. No significant EKG changes with the LexiScan infusion. 2. No LexiScan induced chest pain or cardiac arrhythmia. 3. Normal blood pressure and heart rate response. 4. Sestamibi/sestamibi perfusion scan pending; see separate report. Electronically Signed On 03-19-2022 16:57:23 CDT by Marsha Duran M.D. [id number]
--- NOTE | 2022-03-12 07:06 | NMCV_ITS ---
NM yayo perf SPECT r/s* [id number] Judson Wellington Age: 76 Gender: M : 1945 Exam Date: 03/12/2022 07:06 Ordering Phys: Simon Mancera MD Technologist: MIKE Perez Exam Location: [facility] Indications: CHEST PAIN STRESS TEST Please see separate stress test report in [facility] for full findings IMAGE PROTOCOL Rest/Stress 1 Lexiscan Day Radiopharmaceutical Dose (mCi) Administration Site Administered by Rest: Tc-99m 10.9 IV MIKE Gomez Sestamibi Stress:Tc-99m 32.7 IV MIKE Gomez Sestamibi Rest: 12-Mar-2022 60 Discovery 630 Stress: 12-Mar-2022 30 Discovery 630 0.4mg Lexiscan. Images obtained in supine and prone position. SPECT RESULTS Technical Quality: Excellent Raw Data Analysis: Normal Image Corrections: No attenuation or motion correction applied Summed Stress Score: 0 Summed Rest Score: 0 Summed Difference Score: 0 PERFUSION FINDINGS Small sized perfusion abnormality of mild severity of apical inferior and apical lateral shaffer on supine stress images with somewhat improved tracer uptake in prone images. This likely represents attenuation artifact. FUNCTIONAL RESULTS (calculated via Gated SPECT) Stress Image LV EF (%): 58 Stress EDV (mL):112 TID: 0.92 Stress ESV (mL):47 FUNCTIONAL FINDINGS: The left ventricle is normal in size. Transient Ischemia Dilatation of 0.92. There is normal left ventricular systolic function. The left ventricular ejection fraction is normal with a value of 58%. There is normal left ventricular wall thickening. IMPRESSIONS 1. Myocardial perfusion imaging is normal. Attenuation artifact in apical inferior and apical lateral shaffer. 2. Overall left ventricular systolic function is normal without regional wall motion abnormalities, LVEF=58%. 3. EKG portion of the study will be reported separately. 4. Scan indicates low risk for cardiac events. Marsha Duran MD (Electronically Signed) Final Date: 16 March 2022 00:50 S
[2022-03-12] MEDS: regadenoson 0.4 Mg/5 ml Syringe IVP (08:27)
[2022-03-12 08:46] VITALS: BP 152/69; PULSE 60
== END 2022-03-12 06:39 | disposition home or self-care (01) ==
LOC: CDL 06:41
PROVIDERS: Visit Provider Family Medicine
DX: R07.9 Chest pain, unspecified (principal)
CPT/HCPCS: 78452; 93017; A9500; J2785

== ENCOUNTER 2022-07-11 17:35 | Emergency (ER) | payer MEDICARE, OTHER, SELFPAY ==
[2022-07-11] VITALS (8 sets, daily range): BP systolic 133–171; BP diastolic 60–93; PULSE 56–639; RESP 16–20; TEMP 36.6; O2SAT 95–98; BMI 29.2
--- NOTE | 2022-07-11 17:50 | XRR_ITS ---
PROCEDURE INFORMATION: Exam: XR Chest Exam date and time: 07/11/2022 6:09 PM Age: 77 years old Clinical indication: Pain; Chest pressure; Additional info: Chest pain TECHNIQUE: Imaging protocol: Radiologic exam of the chest. Views: 1 view. COMPARISON: CR XR chest 1V portable [id number] 02/03/2021 1:55 PM FINDINGS: Lungs: The lungs are clear. Pleural spaces: Unremarkable. No pleural effusion. No pneumothorax. Heart/Mediastinum: Unremarkable. No cardiomegaly. Bones/joints: Mild degenerative changes are present in the thoracic spine. No acute fracture. XR/XR chest 1V portable [id number] IMPRESSION: No acute cardiopulmonary abnormality.
--- NOTE | 2022-07-11 17:50 | ECG_ITS ---
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 Measurements Intervals [place] Rate: 64 P: 32 ND: 170 QRS: 12 QRSD: 97 T: 51 QT: 393 QTc: 408 Interpretive Statements SINUS RHYTHM Compared to ECG 02/03/2021 13:55:09 Sinus bradycardia no longer present Electronically Signed On 07-11-2022 19:34:50 CDT by Yuan Howard M.D. [id number]
[2022-07-11 18:06] LABS: Basophils # 0.1 10^3/uL (0.0-0.1); Basophils % 0.8 %; Eosinophils # 0.2 10^3/uL (0.0-0.8); Eosinophils % 2.8 %; Hematocrit 44.8 % (42.0-52.0); Lymphocytes % 27.4 %; Mean Corpuscular HGB Conc 33.5 g/dL (30.0-36.0); Mean Corpuscular Hemoglobin 32.8 pg (28.0-34.0); Mean Platelet Volume 10.9 fL (7.4-10.4); Monocytes # 0.6 10^3/uL (0.2-0.9); Monocytes % 8.1 %; Neutrophils # 4.41 10^3/uL (1.8-7.7); Neutrophils % 60.6 %; Nucleated Red Blood Cells % 0 %; Platelet Count 174 10^3/cmm (130-400); Red Blood Count 4.57 10^6/uL (4.1-5.3); Red Cell Distribution Width 13.1 % (12.1-15.1); White Blood Count 7.3 10^3/uL (4.0-10.0)
[2022-07-11] MEDS: nitroglycerin 0.4 mg sublingual Tablet SUBLINGUAL (18:30)
[2022-07-11 18:31] LABS: Troponin(5th) Baseline 9 ng/L (0-15)
[2022-07-11 18:33] LABS: Alanine Aminotransferase 26 U/L (0-41); Albumin Level 4.3 g/dL (3.5-5.2); Alkaline Phosphatase 48 U/L (40-130); Aspartate Amino Transferase 26 U/L (0-40); Blood Urea Nitrogen 9 mg/dL (8-23); Carbon Dioxide 28 mmol/L (22-29); Chloride 104 mmol/L (98-107); Glucose 117 mg/dL (65-115); Osmolality Calculated 292 mOsm/kg (285-295); Sodium 141 mmol/L (136-145); Total Bilirubin 0.4 mg/dL (0.15-1.2); Total Protein 7.3 g/dL (6.6-8.7)
[2022-07-11 18:54] LABS: Anion Gap 13.6 (5-19); Potassium 4.6 mmol/L (3.5-5.1)
[2022-07-11] MEDS: amlodipine 10 mg Tablet PO (19:37)
--- NOTE | 2022-07-11 19:46 | W.ED.CHESTPA ---
HPI - Chest Pain General: Chief Complaint: Chest Pain Stated Complaint: Chest pains, Arm numb, Headpain Time Seen by Provider: 07/11/22 17:59 Source: patient and family History of Present Illness: 77-year-old male with a history of hypertension. He has no prior history of coronary disease. He had a negative stress test in March. Since sometime before that time, he has had chest discomfort with pressure on and off, and aching in his left arm. He presents with that sensation on and off today. He notes that he is felt quite tired today. He is mildly short of breath if he tries to do any activity. No fever. No cough. He also notes that his blood pressure has been slowly climbing. He had not had high blood pressure all of his life, and several months ago began to have higher blood pressures. He was placed on a medication, but despite this for the past couple of days its been high, in the 170s. This evening, it was near 190 systolic with his pressure being elevated, and his chest discomfort systems, he presented to the emergency room. MD complaint: chest discomfort Pertinent past history: other Onset (ago): hour(s) Timing of current episode: episodic Prior episodes: Yes Onset: during rest Pain location: substernal Pain radiation: left arm Severity: moderate Relieving factors: nothing Exacerbating factors: nothing Associated symptoms: Reports dyspnea (with activity); Deny abdominal pain, diaphoresis, fever(s), leg edema, nausea, palpitations or vomiting Treatment prior to arrival: none Review of Systems Const: Denies: fever(s) or diaphoresis Eyes: Denies: change in vision ENMT: Denies: throat pain Card: Reports: chest pain; Denies: palpitations Resp: Reports: dyspnea (with activity) GI: Denies: abdominal pain, nausea or vomiting Skin/Breast: Denies: rash Neuro: Denies: headache(s), weakness in extremities, dizziness or confusion PFS ED PFSH: Surgical History History of right knee joint replacement Social History Smoking and tobacco status: never smoked Alcohol intake: never Physical Exam Const: COMMON NORMALS: no acute distress GENERAL APPEARANCE: cooperative; not ill appearing HENMT: COMMON NORMALS: normocephalic, atraumatic and Normal external nose present HEAD & SCALP: normocephalic and atraumatic FACE & SINUS: normal facial exam NOSE: Normal external nose present Eye: COMMON NORMALS: Equal, round and reactive pupils present and EOMs intact bilaterally PUPIL: Yes Equal, round and reactive pupils present Neck/C-Spine: GENERAL: Yes trachea midline Chest: CHEST: Yes Symmetrical chest wall rise Cardio: COMMON NORMALS: regular rate and regular rhythm RATE: regular rate RHYTHM: regular rhythm GI: COMMON NORMALS: Normal to inspection, nondistended, normoactive bowel sounds present, Soft to palpation and non-tender PALPATION: Yes Soft to palpation Extremity: COMMON NORMALS: no pedal edema Neuro: ANDRES COMA SCALE: document GCS findings [place] coma scale eye opening: Spontaneous [place] coma scale verbal response: Orientated Andres coma scale motor response: Obey commands [place] coma scale total score: 15 Psych: COMMON NORMALS: mental status grossly normal Course Vital Signs: Vital signs: Vital Signs Temperature 97.8 F 07/11/22 17:43 Pulse Rate 64 07/11/22 21:03 Respiratory Rate 16 07/11/22 21:03 Blood Pressure 165/93 07/11/22 21:03 Pulse Oximetry 97 07/11/22 21:03 Oxygen Delivery Me thod 07/11/22 20:49 MDM - Chest Pain Medical Decision Making He remains hypertensive in the ER. His blood pressure was 170. His chest discomfort however is significantly improved. He is not really having any pain now. Sublingual nitroglycerin brought his blood pressure down. He is asymptomatic. His rate is 63. Rhythm is sinus. Blood pressure 139/72. Respiration 17 pulse ox of 96 on room air. His EKG shows a normal axis, and normal intervals. The rate is 65. No ST elevation whatsoever. His first troponin is 9. His CBC is normal. His BMP is normal. No elevation in liver enzymes. His chest x-ray is nonacute. Awaiting a 2-hour troponin. To her troponin is normal. EKG remains normal. He is asymptomatic. He will be allowed discharge. He does have a cardiology appointment later this month. He knows to return if symptoms return Lab Data : 07/11/22 18:00 07/11/22 18:00 Radiology Impressions Chest X-Ray 07/11/22 17:50 IMPRESSION: No acute cardiopulmonary abnormality. Laboratory Results WBC 7.3 10^3/uL (4.0-10.0) 07/11/22 18:00 RBC 4.57 10^6/uL (4.1-5.3) 07/11/22 18:00 Hgb 15.0 g/dL (11.7-16.6) 07/11/22 18:00 Hct 44.8 % (42.0-52.0) 07/11/22 18:00 MCV 98.0 fl (80-94) H 07/11/22 18:00 MCH 32.8 pg (28.0-34.0) 07/11/22 18:00 MCHC 33.5 g/dL (30.0-36.0) 07/11/22 18:00 RDW 13.1 % (12.1-15.1) 07/11/22 18:00 Plt Count 174 10^3/cmm (130-400) 07/11/22 18:00 MPV 10.9 fL (7.4-10.4) H 07/11/22 18:00 Neut % (Auto) 60.6 % 07/11/22 18:00 Lymph % (Auto) 27.4 % 07/11/22 18:00 [place] % (Auto) 8.1 % 07/11/22 18:00 Eos % (Auto) 2.8 % 07/11/22 18:00 Baso % (Auto) 0.8 % 07/11/22 18:00 Neut # (Auto) 4.41 10^3/uL (1.8-7.7) 07/11/22 18:00 Lymph # (Auto) 2.0 10^3/uL (0.8-4.8) 07/11/22 18:00 [place] # (Auto) 0.6 10^3/uL (0.2-0.9) 07/11/22 18:00 Eos # (Auto) 0.2 10^3/uL (0.0-0.8) 07/11/22 18:00 Baso # (Auto) 0.1 10^3/uL (0.0-0.1) 07/11/22 18:00 Nucleated RBC % (auto) 0 % 07/11/22 18:00 Nucleated RBCs # 0.0 /100WBC 07/11/22 18:00 Sodium 141 mmol/L (136-145) 07/11/22 18:00 Potassium 4.6 mmol/L (3.5-5.1) 07/11/22 18:00 Chloride 104 mmol/L (98-107) 07/11/22 18:00 Carbon Dioxide 28 mmol/L (22-29) 07/11/22 18:00 Anion Gap 13.6 (5-19) 07/11/22 18:00 BUN 9 mg/dL (8-23) 07/11/22 18:00 Creatinine 0.8 mg/dL (0.7-1.2) 07/11/22 18:00 GFR Calculation Not Reportable 07/11/22 18:00 Glucose 117 mg/dL (65-115) H 07/11/22 18:00 Calculated Osmolality 292 mOsm/kg (285-295) 07/11/22 18:00 Calcium 9.0 mg/dL (8.5-10.5) 07/11/22 18:00 Magnesium 2.0 mg/dL (1.7-2.3) 07/11/22 19:39 Total Bilirubin 0.4 mg/dL (0.15-1.2) 07/11/22 18:00 AST 26 U/L (0-40) 07/11/22 18:00 ALT 26 U/L (0-41) 07/11/22 18:00 Alkaline Phosphatase 48 U/L (40-130) 07/11/22 18:00 Troponin T Baseline 9 ng/L (0-15) 07/11/22 18:00 Troponin T 120 Minute 9.67 ng/L (0-15) 07/11/22 19:39 Delta Troponin T 0.67 ABS# (0-10) 07/11/22 19:39 NT-Pro-B Natriuret Pep 104 pg/mL (0-450) 07/11/22 19:39 Total Protein 7.3 g/dL (6.6-8.7) 07/11/22 18:00 Albumin 4.3 g/dL (3.5-5.2) 07/11/22 18:00 Globulin 3.0 g/dL (1.3-4.6) 07/11/22 18:00 Discharge Plan Discharge Patient Disposition: Home Clinical Impression: Chest pain, Hypertension Condition: Stable Prescriptions: New amlodipine 10 mg tablet 10 mg PO DAILY Qty: 30 0RF No Action azithromycin [Zithromax Z-Regan] 250 mg tablet See Rx Instructions PO .COMPLEX Qty: 6 0RF Rx Instructions: For 250 mg dose pack: take 500 mg today (day 1), then 250 mg for 4 days (days 2-5) PO aspirin 325 mg Tablet 325 mg PO BEDTIME Vitamin D3 50 mcg (2,000 unit) Tablet 2,000 unit PO BID atorvastatin 20 mg tablet 20 mg PO QAM potassium citrate 10 mEq (1,080 mg) tablet extended release 10 meq PO QPM timolol maleate 0.5 % drops 1 drp ophthalmic (eye) BEDTIME Rx Instructions: both eyes ondansetron 4 mg tablet,disintegrating 4 mg PO Q8H PRN (Reason: NAUSEA/VOMITING) Naprosyn 500 mg tablet 500 mg PO BID PRN (Reason: pain) Qty: 20 0RF Discharge Orders: Discharge ED (Routine); Ordered 07/11/22 Ordered By: Guillermo Obrien Referrals: Simon Mancera MD [Primary Care Provider] - 1-3 days Patient Instructions: Chest Pain (ED), Hypertension (ED) Activity Restrictions/Additional Instructions: Continue to check your blood pressure twice daily. Continue your lisinopril. If your blood pressure remains greater than 150 systolic (the top number) take the medication you were prescribed. Give the medication at least 2 hours to work prior to taking her blood pressure again. Call your doctor with blood pressure numbers return for any return of symptoms Coding Level of Care Code ED Camp Maintenance Supervisor for Shawn Fwyisel Exam Comprehensive
[2022-07-11 20:06] LABS: Troponin 5 2HR 9.67 ng/L (0-15)
--- NOTE | 2022-07-11 20:08 | ECG_ITS ---
[facility] Test Date: 2022-07-11 Pat Name: Judson Wellington Department: Room: Gender: Male Dice Spotter: : 1945 Requested By: Francois Rodriguez Order Number: [id number] Chinyere MD: Yuan Howard M.D. Measurements Intervals [place] Rate: 52 P: 70 [place]: 188 QRS: 9 QRSD: 85 T: 37 QT: 421 QTc: 395 Interpretive Statements SINUS BRADYCARDIA Compared to ECG 07/11/2022 17:49:25 Sinus rhythm no longer present Electronically Signed On 07-12-2022 18:27:15 CDT by Yuan Howard M.D. [email or web address] [email or web address] clinic mercy hospitalBIO-IVT Group/store/[id number]
[2022-07-11 20:16] LABS: NT Pro B Type Natriuretic Pept 104 pg/mL (0-450)
[2022-07-11 20:17] LABS: Troponin 5 2HR Delta 0.67 ABS# (0-10)
== END 2022-07-11 21:02 | disposition home or self-care (01) ==
PROVIDERS: Family Medicine; Emergency Provider Emergency Medicine; PCP Family Medicine
DX: R07.9 Chest pain, unspecified (principal); I10 Essential (primary) hypertension; Z79.82 Long term (current) use of aspirin
CPT/HCPCS: 36415; 71045; 80053; 83735; 83880; 84484; 85025; 93005; 99285

== ENCOUNTER 2022-08-25 12:10 | Outpatient (RCR) | payer MEDICARE, OTHER, SELFPAY | END 2022-09-02 23:59 | disposition home or self-care (01) | LOC: CR 12:10 | PROVIDERS: PCP Family Medicine; Referring Provider Internal Medicine Cardiovascular Disease; Visit Provider Internal Medicine Cardiovascular Disease | DX: I25.10 Atherosclerotic heart disease of native coronary artery without angina pectoris (principal) | CPT/HCPCS: 93798 ==

== ENCOUNTER 2022-09-03 10:20 | Outpatient (RCR) | payer MEDICARE, OTHER, SELFPAY | END 2022-10-03 23:59 | disposition home or self-care (01) | LOC: CR 10:20 | PROVIDERS: PCP Family Medicine; Referring Provider Internal Medicine Cardiovascular Disease; Visit Provider Internal Medicine Cardiovascular Disease | DX: I25.10 Atherosclerotic heart disease of native coronary artery without angina pectoris (principal) | CPT/HCPCS: 93798 ==

== ENCOUNTER 2022-09-10 15:03 | Emergency (ER) | payer MEDICARE, OTHER, SELFPAY ==
[2022-09-10 15:10] VITALS: BP 126/61; PULSE 60; RESP 16; TEMP 36.6; O2SAT 95; BMI 29.2
--- NOTE | 2022-09-10 15:21 | ECG_ITS ---
[facility] Test Date: 2022-09-10 Pat Name: Judson Wellington Department: Room: Gender: Male Offset Platemaker: : 1945 Requested By: Francois Rodriguez Order Number: [id number] Chinyere MD: Eyal Duke M.D. Measurements Intervals [place] Rate: 56 P: 77 [place]: 188 QRS: 3 QRSD: 93 T: 47 QT: 431 QTc: 419 Interpretive Statements SINUS BRADYCARDIA MINIMAL ST DEPRESSION [0.025+ mV ST DEPRESSION] Compared to ECG 07/11/2022 20:08:17 ST (T wave) deviation now present Electronically Signed On 09-10-2022 15:29:46 CNA LTC by Eyal Duke M.D. [id number]
--- NOTE | 2022-09-10 16:19 | XR_ITS ---
WS: [id number] EXAMINATION: XR chest 1V portable [id number] REASON FOR EXAM: cp COMPARISON: None available. ORDER DATE: 09/10/2022 4:22 PM TECHNIQUE: A single, portable frontal chest x-ray was obtained. X-RAY FINDINGS: The lungs are clear. Pleural spaces are clear. No pleural effusions or pneumothorax. Cardiomediastinal silhouette is unremarkable except for moderate atherosclerotic aortic change. No ev idence for pulmonary edema. Soft tissue and osseous structures are unremarkable. No tubes or lines are present. XR/XR chest 1V portable [id number] IMPRESSION: Unremarkable frontal portable chest x-ray.
--- NOTE | 2022-09-10 16:19 | W.ED.CHESTPA ---
HPI - Chest Pain General: Chief Complaint: Chest Pain Stated Complaint: Chest pains, Left arm pain Time Seen by Provider: 09/10/22 16:09 Source: patient and family Mode of arrival: ambulatory Limitations: no limitations History of Present Illness: This patient was directed to the emergency department by his dye operator in [place]. He states he has been having left arm discomfort for some time. He has been having it constantly since earlier this week. He was at cardiac rehab yesterday and continued to have the pain. He called his dye operator today who asked him to come to either the emergency department [place] or to the emergency department here to be evaluated. Patient has known nonocclusive coronary artery disease. Is been going to cardiac rehab and doing fairly well with bicycle ergometry as well as treadmill. He states he can walk about 15 minutes at 3 miles an hour before he gets fatigued. He states over the past 6 months he has noted increased fatigue with activity and does not feel he has his normal energy level. He denies any cough or fever or illness recently. He has been taking his medications as prescribed. He states he had an angiogram done by dye operator this past fall that showed 50 to 60% occlusion at 2 different vessels. Is also been recently treated for hypertension and has not had any difficulty with his blood pressure since starting that treatment. He states he is right-handed. He does not do any repetitive activity but does have a history of having a cervical fusion done many years ago and he had similar symptoms related to that procedure. Denies any weakness or loss of supervisor alteration workroom strength etc. Pertinent past history: coronary artery disease Timing of current episode: constant Associated symptoms: Deny abdominal pain, dyspnea, fever(s), nausea, palpitations, syncope or vomiting Risk Factors: Coronary artery disease risk factors: hypertension Review of Systems Const: Denies: fever(s) or chills Eyes: Denies: change in vision ENMT: Denies: throat pain, odynophagia, mouth pain, nasal discharge or nasal congestion Card: Denies: palpitations, syncope or pre-syncope Resp: Denies: dyspnea, productive cough or non-productive cough GI: Denies: abdominal pain, nausea or vomiting : Denies: flank pain, difficulty urinating, dysuria or urinary frequency Musc: Reports: extremity pain; Denies: neck pain, back pain or extremity swelling Skin/Breast: Denies: rash or pruritus Neuro: Denies: headache(s), numbness in extremities or weakness in extremities PFSH ED PFSH: Surgical History History of right knee joint replacement Social History Smoking and tobacco status: never smoked Alcohol intake: never Physical Exam Narrative: EXAM NARRATIVE: He is alert in no acute distress and cooperative during examination. Good eye contact. Const: COMMON NORMALS: no acute distress, average body habitus and patient oriented x3 GENERAL APPEARANCE: cooperative and comfortable HENMT: COMMON NORMALS: normocephalic, atraumatic, Normal nasal mucous membranes and turbinates present, moist oral mucous membranes and oropharynx normal HEAD & SCALP: normocephalic and atraumatic NOSE: Normal nasal mucous membranes and turbinates present Eye: COMMON NORMALS: Equal, round and reactive pupils present, EOMs intact bilaterally and conjunctivae normal CONJUNCTIVA: Yes conjunctivae normal PUPIL: Yes Equal, round and reactive pupils present Neck/C-Spine: COMMON NORMALS: no lymphadenopathy, no JVD and No carotid bruits OTHER: He has some restriction in range of motion with with rotation and sidebending to the right which causes him some mild subjective discomfort in the interscapular region. There is no palpable tenderness of this paracervical muscles the superior or belly of the trapezius muscles. No midline tenderness or step-off. Chest: COMMONS NORMALS: normal inspection of the chest and normal palpation of entire chest wall Resp: COMMON NORMALS: normal respiratory effort, No retractions, No use of accessory muscles and clear to auscultation bilaterally AUSCULTATION: clear to auscultation bilaterally Cardio: COMMON NORMALS: no JVD, regular rate, regular rhythm, No murmurs present (Cardio) and Peripheral pulses 2+ throughout RATE: regular rate RHYTHM: regular rhythm PERIPHERAL PULSES: Peripheral pulses 2+ throughout GI: COMMON NORMALS: Normal to inspection, nondistended, normoactive bowel sounds present, Soft to palpation and non-tender PALPATION: Yes Soft to palpation : COMMON NORMALS: Yes no CVA tenderness BLADDER/KIDNEY EXAM: Yes no CVA tenderness Back/Pelvis: COMMON NORMALS: no CVA tenderness, thoracic and lumbar spine normal to inspection, no thoracic nor lumbar tenderness and thoraco-lumbar ROM normal Extremity: COMMON NORMALS: normal to inspection, full ROM, capillary refill normal, no calf tenderness and no pedal edema OTHER: Meets noRange of motion at the left upper extremity is normal expected range of motion. At extreme external rotation and a B duction he has symptoms of soreness along the lateral pectoralis and into the axilla. There is no palpable adenopathy. Neuro: COMMON NORMALS: patient oriented x3, moves all extremities, no focal motor deficits and no sensory deficits noted OTHER: He has negative Tinel's sign on both the right and left upper extremities. No sensory loss. There is no muscle atrophy. Psych: COMMON NORMALS: mental status grossly normal Skin: COMMON NORMALS: no rashes or lesions noted, no wounds and turgor normal GENERAL SKIN EXAM: no rashes or lesions noted and turgor normal Course Reevaluation(s): Reevaluation #1: Patient remained stable. No new or focal findings on repeat examination. Discussed current findings and their implications and limitations. Time: 18:17 Vital Signs: Vital signs: Vital Signs Temperature 97.9 F 09/10/22 18:08 Pulse Rate 51 L 09/10/22 18:08 Respiratory Rate 16 09/10/22 18:08 Blood Pressure 121/64 09/10/22 18:08 Pulse Oximetry 97 09/10/22 18:08 Oxygen Delivery Me thod 09/10/22 18:08 MDM - Chest Pain Medical Decision Making Patient with a history of nonocclusive coronary artery disease who was directed to the emergency department because he has had some left arm and shoulder discomfort for a number of days and in fact it may have Tyron been present off and on for quite some time. He states that has been constant for the last several days however. His clinical examination suggests there may be a musculoskeletal component but due diligence was undertaken an EKG chest x-ray troponin and other ancillary studies were performed. They were reassuring particularly in light of his duration of symptoms. I think it is of low likelihood this represents ACS, ischemia etc. at this time. He does have a history of cervical disc disease and had prior cervical fusion. Its not clear whether this is neuropathic or musculoskeletal but likely given his current presentation I recommended him following up with his primary care doctor for potential MRI or additional studies as indicated. We also reviewed reasons to return to this emergency department for sustained chest pain, shortness of breath, diaphoresis etc. He acknowledged our discussion and was appreciative of care. Medical Records I reviewed the patient's medical records. Lab Data I reviewed the patient's lab results. 09/10/22 16:28 09/10/22 16: Radiology Impressions Chest X-Ray 09/10/22 16:19 IMPRESSION: Unremarkable frontal portable chest x-ray. Laboratory Results WBC 7.6 10^3/uL (4.0-10.0) 09/10/22 16:28 RBC 4.60 10^6/uL (4.1-5.3) 09/10/22 16: Hgb 15.1 g/dL (11.7-16.6) 09/10/22 16: Hct 44.2 % (42.0-52.0) 09/10/22 16: MCV 96.1 fl (80-94) H 09/10/22 16: MCH 32.8 pg (28.0-34.0) 09/10/22 16: MCHC 34.2 g/dL (30.0-36.0) 09/10/22 16: RDW 12.8 % (12.1-15.1) 09/10/22 16: Plt Count 209 10^3/cmm (130-400) 09/10/22 16: MPV 10.6 fL (7.4-10.4) H 09/10/22 16:28 Neut % (Auto) 62.4 % 09/10/22 16: Lymph % (Auto) 24.1 % 09/10/22 16:28 [place] % (Auto) 8.4 % 09/10/22 16:28 Eos % (Auto) 3.9 % 09/10/22 16: Baso % (Auto) 0.9 % 09/10/22 16: Neut # (Auto) 4.77 10^3/uL (1.8-7.7) 09/10/22 16: Lymph # (Auto) 1.8 10^3/uL (0.8-4.8) 09/10/22 16:28 [place] # (Auto) 0.6 10^3/uL (0.2-0.9) 09/10/22 16:28 Eos # (Auto) 0.3 10^3/uL (0.0-0.8) 09/10/22 16:28 Baso # (Auto) 0.1 10^3/uL (0.0-0.1) 09/10/22 16:28 Nucleated RBC % (auto) 0 % 09/10/22 16:28 Nucleated RBCs # 0.0 /100WBC 09/10/22 16:28 Sodium 138 mmol/L (136-145) 09/10/22 16:28 Potassium 3.7 mmol/L (3.5-5.1) 09/10/22 16:28 Chloride 98 mmol/L (98-107) 09/10/22 16:28 Carbon Dioxide 26 mmol/L (22-29) 09/10/22 16:28 Anion Gap 17.7 (5-19) 09/10/22 16:28 BUN 15 mg/dL (8-23) 09/10/22 16:28 Creatinine 1.1 mg/dL (0.7-1.2) 09/10/22 16:28 GFR Calculation Not Reportable 09/10/22 16:28 Glucose 100 mg/dL (65-115) 09/10/22 16:28 Calculated Osmolality 287 mOsm/kg (285-295) 09/10/22 16:28 Calcium 9.3 mg/dL (8.5-10.5) 09/10/22 16:28 Total Bilirubin 0.6 mg/dL (0.15-1.2) 09/10/22 16:28 AST 27 U/L (0-40) 09/10/22 16:28 ALT 23 U/L (0-41) 09/10/22 16:28 Alkaline Phosphatase 42 U/L (40-130) 09/10/22 16:28 Troponin T Baseline 11 ng/L (0-15) 09/10/22 16:28 Total Protein 7.2 g/dL (6.6-8.7) 09/10/22 16:28 Albumin 4.4 g/dL (3.5-5.2) 09/10/22 16:28 Globulin 2.8 g/dL (1.3-4.6) 09/10/22 16:28 EKG Data EKG 1: I personally reviewed and interpreted this EKG as follows: Interpretation: Contemporaneous review of the resting EKG reveals a sinus bradycardia 50 bpm. Normal intervals, normal axis. No acute ST-T wave changes noted. Discharge Plan Discharge Patient Disposition: Home Clinical Impression: Atypical chest pain, Arthralgia of left upper arm Condition: Stable Prescriptions: No Action amlodipine 10 mg tablet 10 mg PO DAILY Qty: 90 3RF aspirin 325 mg Tablet 325 mg PO BEDTIME atorvastatin 20 mg tablet 20 mg PO BEDTIME timolol maleate 0.5 % drops 1 drp ophthalmic (eye) BEDTIME Rx Instructions: both eyes Aleve 220 mg Tablet 220 mg PO Q12H PRN (Reason: Pain) Nitrostat 0.4 mg Tablet, Sublingual 0.4 mg SUBLINGUAL Q5M PRN (Reason: Chest Pain) Rx Instructions: do not exceed 3 doses per episode metoprolol tartrate 25 mg tablet 25 mg PO BID lisinopril-hydrochlorothiazide 20-25 mg tablet 1 tab PO QAM Discharge Orders: Discharge ED (Routine); Ordered 09/10/22 Ordered By: Jamey Mejias Referrals: Simon Mancera MD [Primary Care Provider] - 7-10 days (Possible neuropathic pain) Discharge Diet: Usual diet Discharge Activity: Increase activity as tolerated Patient Instructions: Opioid Safety, Pain Management Activity Restrictions/Additional Instructions: As we discussed your evaluation in the emergency department did not reveal any findings that would suggest your recent symptoms are related to your heart. We do recommend you continue your usual medications and cardiac rehab activities. We also recommend consulting with your family doctor regarding additional possible work-up for other sources of your symptoms. Should you develop prolonged chest pain greater than 30 minutes; shortness of breath, sweatiness, nausea or any other concerning symptoms at any time return to this or the nearest emergency department. Otherwise follow-up with your dye operator. Coding Level of Care Code ED Brick Or Block Maker for Shawn Fwyisel Exam Comprehensive
[2022-09-10 16:35] LABS: Basophils # 0.1 10^3/uL (0.0-0.1); Basophils % 0.9 %; Eosinophils # 0.3 10^3/uL (0.0-0.8); Eosinophils % 3.9 %; Hematocrit 44.2 % (42.0-52.0); Hemoglobin 15.1 g/dL (11.7-16.6); Lymphocytes # 1.8 10^3/uL (0.8-4.8); Lymphocytes % 24.1 %; Mean Corpuscular HGB Conc 34.2 g/dL (30.0-36.0); Mean Corpuscular Hemoglobin 32.8 pg (28.0-34.0); Mean Corpuscular Volume 96.1 fl (80-94); Mean Platelet Volume 10.6 fL (7.4-10.4); Monocytes # 0.6 10^3/uL (0.2-0.9); Monocytes % 8.4 %; Neutrophils # 4.77 10^3/uL (1.8-7.7); Neutrophils % 62.4 %; Nucleated Red Blood Cells % 0 %; Platelet Count 209 10^3/cmm (130-400); Red Cell Distribution Width 12.8 % (12.1-15.1); White Blood Count 7.6 10^3/uL (4.0-10.0)
[2022-09-10 16:44] VITALS: BP 126/61; PULSE 60; RESP 16; TEMP 36.6; O2SAT 95
--- NOTE | 2022-09-10 17:00 | ECG_ITS ---
[facility] Test Date: 2022-09-10 Pat Name: Judson Wellington Department: Room: Gender: Male Bucket Chucker: : 1945 Requested By: Jamey eMjias Order Number: [id number] Chinyere MD: Marsha Duran M.D. Measurements Intervals [place] Rate: 50 P: 46 NC: 184 QRS: -8 QRSD: 89 T: 21 QT: 423 QTc: 389 Interpretive Statements SINUS BRADYCARDIA Compared to ECG 09/10/2022 15:21:17 ST (T wave) deviation no longer present Electronically Signed On 09-11-2022 13:12:34 PROGRAM ENGAGEMENT DIRECTOR by Marsha Duran M.D. [email or web address] regional medical centerPeakoscleveland clinic union [email or web address]/store/[id number]
[2022-09-10 17:01] LABS: Troponin(5th) Baseline 11 ng/L (0-15)
[2022-09-10 17:03] LABS: Alanine Aminotransferase 23 U/L (0-41); Albumin Level 4.4 g/dL (3.5-5.2); Alkaline Phosphatase 42 U/L (40-130); Anion Gap 17.7 (5-19); Aspartate Amino Transferase 27 U/L (0-40); Blood Urea Nitrogen 15 mg/dL (8-23); Calcium 9.3 mg/dL (8.5-10.5); Carbon Dioxide 26 mmol/L (22-29); Chloride 98 mmol/L (98-107); Globulin 2.8 g/dL (1.3-4.6); Glucose 100 mg/dL (65-115); Osmolality Calculated 287 mOsm/kg (285-295); Potassium 3.7 mmol/L (3.5-5.1); Sodium 138 mmol/L (136-145); Total Bilirubin 0.6 mg/dL (0.15-1.2); Total Protein 7.2 g/dL (6.6-8.7)
[2022-09-10 17:51] VITALS: BP 121/64; PULSE 51; O2SAT 97
[2022-09-10 18:08] VITALS: BP 121/64; PULSE 51; RESP 16; TEMP 36.6; O2SAT 97
== END 2022-09-10 18:35 | disposition home or self-care (01) ==
PROVIDERS: Emergency Provider Emergency Medicine; PCP Family Medicine
DX: R07.89 Other chest pain (principal); M25.512 Pain in left shoulder; Z79.82 Long term (current) use of aspirin
CPT/HCPCS: 36415; 71045; 80053; 84484; 85025; 93005; 99285

== ENCOUNTER 2022-10-12 14:54 | Outpatient (CLI) | payer MEDICARE, OTHER, SELFPAY ==
--- NOTE | 2022-10-12 15:05 | XRR_ITS ---
PROCEDURE INFORMATION: Exam: XR Cervical Spine Exam date and time: 10/12/2022 3:24 PM Age: 77 years old Clinical indication: Neck pain; Prior surgery; Surgery date: 1-6 months; Surgery type: C spine; Additional info: Cervical radiculopathy TECHNIQUE: Imaging protocol: Radiologic exam of the cervical spine. Views: 4 or 5 views. COMPARISON: CT cervical spin wo con* [id number] 02/03/2021 2:35 PM FINDINGS: Bones/joints: Previous C5-C6 osseous fusion noted. Advanced C4-7 degenerative change. Particularly severe C6-T1 DDD. Large osteophytes as well at these levels. No acute fracture. Unchanged minimal C4 on C5 anterolisthesis. In terms of the cervical spine bodies, there is little if any change in flexion versus extension. Soft tissues: Unremarkable. XR/XR cervical spine 4-5V [id number] IMPRESSION: 1. No acute fracture or significant change from 02/03/2021 CT. 2. No strong evidence of overt instability.
== END 2022-10-12 14:55 | disposition home or self-care (01) ==
LOC: RAD 14:59
PROVIDERS: PCP Family Medicine; Visit Provider Family Medicine
DX: M54.12 Radiculopathy, cervical region (principal); I10 Essential (primary) hypertension; R07.9 Chest pain, unspecified
CPT/HCPCS: 72050; 84439; 84443

== ENCOUNTER → 2022-11-10 14:13 | Outpatient (BNVA) | payer MEDICARE, OTHER, SELFPAY | PROVIDERS: PCP Family Medicine; Visit Provider Family Medicine | DX: N40.0 Benign prostatic hyperplasia without lower urinary tract symptoms (principal) | CPT/HCPCS: 84153 ==

== ENCOUNTER 2023-01-11 11:47 | Outpatient (CLI) | payer MEDICARE, OTHER, SELFPAY ==
--- NOTE | 2023-01-11 12:02 | MR_ITS ---
WS: [id number] MRI CERVICAL SPINE NONCONTRAST HISTORY: CERVICAL DISC DEGENERATION/POSTPROCEDURAL STATUS COMPARISON: Radiograph 10/12/2022 Technique: Multiplanar, multisequence noncontrast imaging of the cervical spine. C4 anterolisthesis by 2.1 mm. Mild diffuse disc space narrowing. Osseous fusion at C5-6. No fractures . Signal within the cervical cord is normal. Visualized posterior fossa is unremarkable. Craniocervical junction, C1 and C2 relationship, odontoid process and soft tissues are normal. C2-C3: Mild osteophytic ridging and mild RIGHT foraminal narrowing. C3-C4: Moderate sized LEFT paracentral disc osteophyte complex contacting the thecal sac. Bilateral f acet joint arthritis and mild foraminal stenosis. C4-C5: Mild disc bulging with a central disc protrusion. Moderate bilateral facet joint arthritis. Mi ld central and bilateral foraminal stenosis. C5-C6: Mild osteophytic ridging. No stenosis. Hypertrophic bone formation at the level of the osseous fusion with mild encroachment upon the ventral thecal sac but no stenosis. C6-C7: LEFT paracentral disc osteophyte complex. Superimposed on annular disc bulging. Mild facet art hritis. Mild bilateral foraminal stenosis. C7-T1: Normal. Paraspinal soft tissue are normal. MR/MR cervical spin wo con* [id number] IMPRESSION: 1. Osseous fusion at C5-6. 2. 2.1 mm anterolisthesis of C4. 3. Multilevel disc and facet disease and spondylosis. 4. Mild central and bilateral foraminal stenosis at C4-5. 5. Mild RIGHT foraminal stenosis at C2-3 and bilaterally at C3-4 and C6-7. 6. Small central disc protrusion at C4-5. 7. Moderate-sized LEFT paracentral disc osteophyte complex at C3-4 and at C6-7 .
== END 2023-01-11 11:48 | disposition home or self-care (01) ==
LOC: RAD 11:52
PROVIDERS: PCP Family Medicine; Visit Provider Registered Nurse
DX: M50.321 Other cervical disc degeneration at C4-C5 level (principal); M25.78 Osteophyte, vertebrae
CPT/HCPCS: 72141

== ENCOUNTER → 2023-06-24 12:38 | Outpatient (BNVA) | payer MEDICARE, OTHER, SELFPAY | PROVIDERS: PCP Family Medicine; Visit Provider Clinical Nurse Specialist Adult Health | DX: L81.9 Disorder of pigmentation, unspecified (principal) | CPT/HCPCS: 88304 ==

== ENCOUNTER 2023-10-14 11:05 | Outpatient (CLI) | payer MEDICARE, OTHER, SELFPAY ==
--- NOTE | 2023-10-14 11:12 | XR_ITS ---
WS: [id number] XR chest 2V* [id number] REASON FOR EXAM: Cough FINDINGS: The chest is unchanged compared to 09/10/2022 Mild tortuosity of the thoracic aorta. Normal heart size. Calcified granulomas disease in both hemithoraces. No active pulmonary parenchymal or pleural disease. Mild elevation of the right hemidiaphragm. IMPRESSION: No acute chest abnormality.
== END 2023-10-14 11:06 | disposition home or self-care (01) ==
LOC: RAD 11:06
PROVIDERS: PCP Family Medicine; Visit Provider Family Medicine
DX: R05.9 Cough, unspecified (principal)
CPT/HCPCS: 71046

== ENCOUNTER 2024-04-16 15:33 | Emergency (ER) | payer MEDICARE, OTHER, SELFPAY ==
[2024-04-16 15:54] VITALS: BP 131/64; PULSE 66; RESP 16; TEMP 38.7; O2SAT 95
--- NOTE | 2024-04-16 15:58 | XRR_ITS ---
PROCEDURE INFORMATION: Exam: XR Chest Exam date and time: 04/16/2024 4:21 PM Age: 78 years old Clinical indication: Fever TECHNIQUE: Imaging protocol: Radiologic exam of the chest. Views: 1 view. COMPARISON: CR XR chest 2V* [id number] 10/14/2023 11:26 AM FINDINGS: Lungs: Unremarkable. No consolidation. Pleural spaces: Unremarkable. No pleural effusion. No pneumothorax. Heart/Mediastinum: Unremarkable. No cardiomegaly. Bones/joints: Unremarkable. XR/XR chest 1V portable [id number] IMPRESSION: No acute findings.
[2024-04-16 16:20] LABS: Basophils % 0.5 %; Eosinophils % 0.7 %; Hematocrit 44.3 % (37-53); Lymphocytes # 0.6 10^3/uL (0.8-4.8); Lymphocytes % 14.3 %; Mean Corpuscular HGB Conc 34.1 g/dL (30-55); Mean Corpuscular Hemoglobin 31.5 pg (27-33); Mean Corpuscular Volume 92.5 fl (82-101); Mean Platelet Volume 10.7 fL (7.4-10.4); Monocytes # 0.4 10^3/uL (0.2-0.9); Monocytes % 9.8 %; Neutrophils # 3.03 10^3/uL (1.8-7.7); Neutrophils % 74.5 %; Nucleated Red Blood Cells % 0 %; Platelet Count 125 10^3/cmm (157-399); Red Blood Count 4.79 10^6/uL (3.85-5.65); White Blood Count 4.07 10^3/uL (3.29-11.43)
--- NOTE | 2024-04-16 16:20 | ED_ITS ---
Documented by User: Jamey Mejias DO 04/16/24 18:11 HPI - Fever 2 General: Chief Complaint: Fever Stated Complaint: fever, chills, ankle swelling Time Seen by Provider: 04/16/24 16:01 Source: patient and family Mode of arrival: ambulatory Limitations: no limitations History of Present Illness: This patient comes to the emergency department because he had fever and bodyaches since . He states that he really does not have any associated symptoms other than he seems to urinate all the time. He denies any headache, neck pain, sore throat congestion cough. He denies any abdominal pain. He denies any known exposure to infectious disease. He states he goes to [facility] in [place] at home and that is about it. There is been no travel outside the country recently. He has had no school-age or young visitors or anyone else who has been ill. He is up-to-date on his immunizations to include COVID influenza etc. He is not a weight loss or history of malignancy etc. He said he many years ago after a mission trip to [facility] in [facility] he had febrile illness but he had taken malaria prophylaxis and he was seen by infectious disease and others after that and not found to have any evidence of tropical disease. He has had a prior cholecystectomy Associated symptoms: Deny abdominal pain, flank pain, chest pain, diarrhea, dysuria, extremity pain, headache(s), nasal congestion, nausea or vomiting Review of Systems 2 Const: Reports: fever(s) and body aches Eyes: Denies: change in vision ENMT: Denies: throat pain, odynophagia, nasal discharge or nasal congestion Card: Denies: chest pain, palpitations or irregular heart rhythm Resp: Denies: dyspnea, productive cough, non-productive cough or wheezing GI: Denies: abdominal pain, nausea, vomiting, hematemesis, diarrhea or melena : Reports: urinary frequency; Denies: flank pain, difficulty urinating or dysuria Musc: Denies: neck pain, back pain, extremity pain or extremity swelling Skin/Breast: Denies: rash Neuro: Denies: headache(s), numbness in extremities or weakness in extremities PFSH ED 2 PFSH: Medical History Verruca vulgaris Hypercholesteremia Hypertension History of TIAs 2012, 02/2021 Surgical History History of cholecystectomy Hx of cataract surgery Hx of lumbosacral spine surgery Cervical vertebral fusion History of right knee joint replacement Social History Smoking and tobacco/nicotine status: never used tobacco/nicotine Alcohol intake: current Substance/Drug Use: never Current occupation: [employer] to fill in as needed Physical Exam 2 Narrative: EXAM NARRATIVE: He appears to be in no acute distress. Answers questions appropriately and has good eye contact. Const: COMMON NORMALS: no acute distress, average body habitus, patient oriented x3, healthy appearing and alert GENERAL APPEARANCE: cooperative and comfortable HENMT: COMMON NORMALS: normocephalic, Normal nasal mucous membranes and turbinates present, moist oral mucous membranes and oropharynx normal HEAD & SCALP: normocephalic FACE & SINUS: normal facial exam, sinuses nontender and face symmetric NOSE: Normal nasal mucous membranes and turbinates present Eye: COMMON NORMALS: Equal, round and reactive pupils present, EOMs intact bilaterally, conjunctivae normal and no scleral icterus CONJUNCTIVA: Yes conjunctivae normal PUPIL: Yes Equal, round and reactive pupils present Neck/C-Spine: COMMON NORMALS: full ROM, no lymphadenopathy, no meningeal signs and no JVD Chest: COMMONS NORMALS: normal inspection of the chest Resp: COMMON NORMALS: normal respiratory effort, No retractions, No use of accessory muscles and clear to auscultation bilaterally AUSCULTATION: clear to auscultation bilaterally Cardio: COMMON NORMALS: no JVD, regular rate, regular rhythm, No murmurs present (Cardio) and Peripheral pulses 2+ throughout RATE: regular rate R HYTHM: regular rhythm PERIPHERAL PULSES: Peripheral pulses 2+ throughout GI: COMMON NORMALS: Normal to inspection, nondistended, normoactive bowel sounds present, Soft to palpation, non-tender and no masses PALPATION: Yes Soft to palpation : COMMON NORMALS: Yes no CVA tenderness BLADDER/KIDNEY EXAM: Yes no CVA tenderness Back/Pelvis: COMMON NORMALS: no CVA tenderness, thoracic and lumbar spine normal to inspection, no thoracic nor lumbar tenderness and thoraco-lumbar ROM normal Extremity: COMMON NORMALS: normal to inspection, full ROM, capillary refill normal, no joint enlargement, no calf tenderness and no pedal edema Neuro: COMMON NORMALS: patient oriented x3, moves all extremities, no focal motor deficits and no sensory deficits noted SENSORIUM/ORIENTATION: Yes alert MENINGEAL SIGNS: Yes no meningeal signs CRANIAL NERVES: Yes CN normal except as noted Psych: COMMON NORMALS: mental status grossly normal Skin: COMMON NORMALS: no rashes or lesions noted, no wounds, turgor normal, no jaundice and no petechiae GENERAL SKIN EXAM: no rashes or lesions noted and turgor normal Course 2 Reevaluation(s): Reevaluation #1: Chest x-ray is unrevealing for obvious pneumonia etc. His laboratories initially are unrevealing for leukocytosis or other concerning findings. His COVID-19 is negative. Repeat examination reveals some abdominal tenderness at this time. He has had a cholecystectomy but I think we need to pursue more broad differential for potential source of fever and 78-year-old gentleman. Going proceed with a CT abdomen pelvis. Time: 17:29 Reevaluation #2: Patient is being turned over to Dr. Obrien for final disposition. Time: 18:10 Vital Signs: Vital signs: Vital Signs Temperature 101.6 F H 04/16/24 15:54 Pulse Rate 58 L 04/16/24 18:30 Respiratory Rate 16 04/16/24 15:54 Blood Pressure 118/48 04/16/24 18:30 Pulse Oximetry 98 04/16/24 18:30 Oxygen Delivery Me thod Room Air 04/16/24 18:30 MDM - Fever Medical Decision Making This normally healthy 78-year-old presented to the emergency department as noted in the HPI with fever since . No associated symptoms other than urinary frequency. No abdominal pain that he was aware of, cough, recent travel or other potential infectious disease exposure. Initial evaluation was focused on potential sources of fever to include chest x- ray, laboratories, urinalysis, viral test predominantly COVID-19. Differential was broadened to include potential intra-abdominal process when initial workup was unrevealing. Lab Data I reviewed the patient's lab results. 04/16/24 16:11 04/16/24 16:11 Radiology Impressions Chest X-Ray 04/16/24 15:58 IMPRESSION: No acute findings. Laboratory Results WBC 4.07 10^3/uL (3.29-11.43) 04/16/24 16:11 RBC 4.79 10^6/uL (3.85-5.65) 04/16/24 16:11 Hgb 15.10 g/dL (11.27-16.99) 04/16/24 16:11 Hct 44.3 % (37-53) 04/16/24 16:11 MCV 92.5 fl (82-101) 04/16/24 16:11 MCH 31.5 pg (27-33) 04/16/24 16:11 MCHC 34.1 g/dL (30-55) 04/16/24 16:11 RDW 14.0 % (12.1-15.1) 04/16/24 16:11 Plt Count 125 10^3/cmm (157-399) L 04/16/24 16:11 MPV 10.7 fL (7.4-10.4) H 04/16/24 16:11 Neut % (Auto) 74.5 % 04/16/24 16:11 Lymph % (Auto) 14.3 % 04/16/24 16:11 Lane % (Auto) 9.8 % 04/16/24 16:11 Eos % (Auto) 0.7 % 04/16/24 16:11 Baso % (Auto) 0.5 % 04/16/24 16:11 Neut # (Auto) 3.03 10^3/uL (1.8-7.7) 04/16/24 16:11 Lymph # (Auto) 0.6 10^3/uL (0.8-4.8) L 04/16/24 16:11 Lane # (Auto) 0.4 10^3/uL (0.2-0.9) 04/16/24 16:11 Eos # (Auto) 0.0 10^3/uL (0.0-0.8) 04/16/24 16:11 Baso # (Auto) 0.0 10^3/uL (0.0-0.1) 04/16/24 16:11 Nucleated RBC % (auto) 0 % 04/16/24 16:11 Nucleated RBCs # 0.0 /100WBC 04/16/24 16:11 Sodium 137 mmol/L (136-145) 04/16/24 16:11 Potassium 4.2 mmol/L (3.5-5.1) 04/16/24 16:11 Chloride 101 mmol/L (98-107) 04/16/24 16:11 Carbon Dioxide 24 mmol/L (22-29) 04/16/24 16:11 Anion Gap 16.2 (5-19) 04/16/24 16:11 BUN 9 mg/dL (8-23) 04/16/24 16:11 Creatinine 0.9 mg/dL (0.7-1.2) 04/16/24 16:11 GFR Calculation Not Reportable 04/16/24 16:11 Glucose 124 mg/dL (65-115) H 04/16/24 16:11 Calculated Osmolality 284 mOsm/kg (285-295) L 04/16/24 16:11 Lactic Acid 1.6 mmol/L (0.5-2.2) 04/16/24 16:11 Calcium 8.4 mg/dL (8.5-10.5) L 04/16/24 16:11 Total Bilirubin 0.9 mg/dL (0.15-1.2) 04/16/24 16:11 AST 64 U/L (0-40) H 04/16/24 16:11 ALT 55 U/L (0-41) H 04/16/24 16:11 Alkaline Phosphatase 49 U/L (40-130) 04/16/24 16:11 Total Protein 7.2 g/dL (6.6-8.7) 04/16/24 16:11 Albumin 4.1 g/dL (3.5-5.2) 04/16/24 16:11 Globulin 3.1 g/dL (1.3-4.6) 04/16/24 16:11 Urine Color Yellow (Yellow) 04/16/24 17:32 Urine Appearance Clear (CLEAR) 04/16/24 17:32 Urine pH 5 (5-7) 04/16/24 17:32 Ur Specific [place] 1.020 (1.005-1.030) 04/16/24 17:32 Urine Protein Neg (Negative) 04/16/24 17:32 Urine Glucose (UA) Norm (Normal) 04/16/24 17:32 Urine Ketones 1+ (Negative) H 04/16/24 17:32 Urine Blood 2+ (Negative) H 04/16/24 17:32 Urine Nitrate Negative (Negative) 04/16/24 17:32 Urine Bilirubin 1+ (Negative) H 04/16/24 17:32 Urine Urobilinogen 1 mg/dL (Negative) H 04/16/24 17:32 Ur Leukocyte Esterase Negative (Negative) 04/16/24 17:32 Urine RBC 0-4 /hpf (0-2) H 04/16/24 17:32 Urine WBC None /hpf (0-5) 04/16/24 17:32 Ur Squamous Epith Cells None /hpf (0-5) 04/16/24 17:32 Amorphous Sediment Not Reportable 04/16/24 17:32 Urine Bacteria Trace /hpf (NONE) 04/16/24 17:32 Urine Mucus 1+ /hpf 04/16/24 17:32 SARS-CoV-2 Ag (Rapid) negative (Negative) 04/16/24 16:22 Discharge Plan Discharge Patient Disposition: Home Clinical Impression: Fever of unknown origin Condition: Stable Prescriptions: New doxycycline hyclate 100 mg tablet 100 mg PO BID 14 Days Qty: 28 0RF No Action aspirin [Adult Low Dose Aspirin] 81 mg tablet,delayed release (DR/EC) 81 mg PO DAILY cyclobenzaprine 10 mg tablet 10 mg PO TID PRN (Reason: muscle spasm) Qty: 30 0RF lisinopril-hydrochlorothiazide 20-25 mg tablet See Rx Instructions .ROUTE .COMPLEX Qty: 90 3RF Dose Instruction: Take 1 tablet by mouth once daily Rx Instructions: Take 1 tablet by mouth once daily levofloxacin 500 mg tablet 500 mg PO DAILY Qty: 10 0RF albuterol sulfate [ProAir HFA] 90 mcg/actuation HFA aerosol inhaler 2 puff inhalation Q6H PRN (Reason: shortness of breath or wheezing) Qty: 8.5 6RF benzonatate 100 mg capsule 100 mg PO TID PRN (Reason: cough) Qty: 30 2RF azithromycin 250 mg tablet See Rx Instructions PO .COMPLEX Qty: 6 0RF Rx Instructions: For 250 mg dose pack: take 500 mg today (day 1), then 250 mg for 4 days (days 2-5) PO prednisone 20 mg tablet 20 mg PO DAILY Qty: 5 0RF amlodipine 10 mg tablet 10 mg PO DAILY Qty: 90 3RF atorvastatin 20 mg tablet 20 mg PO BEDTIME Qty: 90 3RF timolol maleate 0.5 % drops 1 drp ophthalmic (eye) BEDTIME Rx Instructions: both eyes Aleve 220 mg Tablet 220 mg PO Q12H PRN (Reason: Pain) Nitrostat 0.4 mg Tablet, Sublingual 0.4 mg SUBLINGUAL Q5M PRN (Reason: Chest Pain) Rx Instructions: do not exceed 3 doses per episode Discharge Orders: Discharge ED (Routine); Ordered 04/16/24 Ordered By: Guillermo Obrien Referrals: Simon Mancera MD [Primary Care Provider] - 1-3 days Patient Instructions: Fever in Adults (ED), Opioid Safety, Pain Management Activity Restrictions/Additional Instructions: Treat fever accordingly with Tylenol, etc. Stay hydrated. Antibiotics as directed. See your doctor tomorrow as scheduled. Return to the emergency department for fever despite 3-4 more doses of antibiotics, worsening mental status, abdominal symptoms, shortness of breath, other concerning symptoms despite treatment. Make sure your doctor knows tomorrow that a tick panel has been sent for follow-up. Coding Level of Care Code ED Diesel Dinkey Operator for Chg Fwd Documented by User: Guillermo Obrien DO 04/16/24 18:56 HPI - Fever 2 General: Chief Complaint: Fever Stated Complaint: fever, chills, ankle swelling Time Seen by Provider: 04/16/24 16:01 PFS ED 2 PFSH: Medical History Verruca vulgaris Hypercholesteremia Hypertension History of TIAs 02/2021 Surgical History History of cholecystectomy Hx of cataract surgery Hx of lumbosacral spine surgery Cervical vertebral fusion History of right knee joint replacement Social History Smoking and tobacco/nicotine status: never used tobacco/nicotine Alcohol intake: current Substance/Drug Use: never 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 No associated symptoms other than urinary frequency. No abdominal pain that he was aware of, cough, recent travel or other potential infectious disease exposure. Initial evaluation was focused on potential sources of fever to include chest x- ray, laboratories, urinalysis, viral test predominantly COVID-19. Differential was broadened to include potential intra-abdominal process when initial workup was unrevealing. This patient was checked out at shift change. Urinalysis does not reveal evidence of urinary tract infection. Minimal blood present. The platelet count slightly low. Liver enzymes are minimally elevated. White blood cell count on the low side of normal. This brings the possibility of tick fever into the differential. On further questioning, the patient did have a tick embedded several days ago on his right side. Discussed risks and potential benefits of coverage for tick fever while sending a panel. He has no other known source of infection. Will go ahead and treat him. Strict protocol for return given including development of further abdominal symptoms, fever despite 3-4 doses of antibiotics, etc. Lab Data 04/16/24 16:11 04/16/24 16:11 Radiology Impressions Chest X-Ray 04/16/24 15:58 IMPRESSION: No acute findings. Laboratory Results WBC 4.07 10^3/uL (3.29-11.43) 04/16/24 16:11 RBC 4.79 10^6/uL (3.85-5.65) 04/16/24 16:11 Hgb 15.10 g/dL (11.27-16.99) 04/16/24 16:11 Hct 44.3 % (37-53) 04/16/24 16:11 MCV 92.5 fl (82-101) 04/16/24 16:11 MCH 31.5 pg (27-33) 04/16/24 16:11 MCHC 34.1 g/dL (30-55) 04/16/24 16:11 RDW 14.0 % (12.1-15.1) 04/16/24 16:11 Plt Count 125 10^3/cmm (157-399) L 04/16/24 16:11 MPV 10.7 fL (7.4-10.4) H 04/16/24 16:11 Neut % (Auto) 74.5 % 04/16/24 16:11 Lymph % (Auto) 14.3 % 04/16/24 16:11 Lane % (Auto) 9.8 % 04/16/24 16:11 Eos % (Auto) 0.7 % 04/16/24 16:11 Baso % (Auto) 0.5 % 04/16/24 16:11 Neut # (Auto) 3.03 10^3/uL (1.8-7.7) 04/16/24 16:11 Lymph # (Auto) 0.6 10^3/uL (0.8-4.8) L 04/16/24 16:11 Lane # (Auto) 0.4 10^3/uL (0.2-0.9) 04/16/24 16:11 Eos # (Auto) 0.0 10^3/uL (0.0-0.8) 04/16/24 16:11 Baso # (Auto) 0.0 10^3/uL (0.0-0.1) 04/16/24 16:11 Nucleated RBC % (auto) 0 % 04/16/24 16:11 Nucleated RBCs # 0.0 /100WBC 04/16/24 16:11 Sodium 137 mmol/L (136-145) 04/16/24 16:11 Potassium 4.2 mmol/L (3.5-5.1) 04/16/24 16:11 Chloride 101 mmol/L (98-107) 04/16/24 16:11 Carbon Dioxide 24 mmol/L (22-29) 04/16/24 16:11 Anion Gap 16.2 (5-19) 04/16/24 16:11 BUN 9 mg/dL (8-23) 04/16/24 16:11 Creatinine 0.9 mg/dL (0.7-1.2) 04/16/24 16:11 GFR Calculation Not Reportable 04/16/24 16:11 Glucose 124 mg/dL (65-115) H 04/16/24 16:11 Calculated Osmolality 284 mOsm/kg (285-295) L 04/16/24 16:11 Lactic Acid 1.6 mmol/L (0.5-2.2) 04/16/24 16:11 Calcium 8.4 mg/dL (8.5-10.5) L 04/16/24 16:11 Total Bilirubin 0.9 mg/dL (0.15-1.2) 04/16/24 16:11 AST 64 U/L (0-40) H 04/16/24 16:11 ALT 55 U/L (0-41) H 04/16/24 16:11 Alkaline Phosphatase 49 U/L (40-130) 04/16/24 16:11 Total Protein 7.2 g/dL (6.6-8.7) 04/16/24 16:11 Albumin 4.1 g/dL (3.5-5.2) 04/16/24 16:11 Globulin 3.1 g/dL (1.3-4.6) 04/16/24 16:11 Urine Color Yellow (Yellow) 04/16/24 17:32 Urine Appearance Clear (CLEAR) 04/16/24 17:32 Urine pH 5 (5-7) 04/16/24 17:32 Ur Specific [place] 1.020 (1.005-1.030) 04/16/24 17:32 Urine Protein Neg (Negative) 04/16/24 17:32 Urine Glucose (UA) Norm (Normal) 04/16/24 17:32 Urine Ketones 1+ (Negative) H 04/16/24 17:32 Urine Blood 2+ (Negative) H 04/16/24 17:32 Urine Nitrate Negative (Negative) 04/16/24 17:32 Urine Bilirubin 1+ (Negative) H 04/16/24 17:32 Urine Urobilinogen 1 mg/dL (Negative) H 04/16/24 17:32 Ur Leukocyte Esterase Negative (Negative) 04/16/24 17:32 Urine RBC 0-4 /hpf (0-2) H 04/16/24 17:32 Urine WBC None /hpf (0-5) 04/16/24 17:32 Ur Squamous Epith Cells None /hpf (0-5) 04/16/24 17:32 Amorphous Sediment Not Reportable 04/16/24 17:32 Urine Bacteria Trace /hpf (NONE) 04/16/24 17:32 Urine Mucus 1+ /hpf 04/16/24 17:32 SARS-CoV-2 Ag (Rapid) negative (Negative) 04/16/24 16:22 All radiology interpretation(s) finalized by discharge Discharge Plan Discharge Patient Disposition: Home Clinical Impression: Fever of unknown origin Condition: Stable Prescriptions: New doxycycline hyclate 100 mg tablet 100 mg PO BID 14 Days Qty: 28 0RF No Action aspirin [Adult Low Dose Aspirin] 81 mg tablet,delayed release (DR/EC) 81 mg PO DAILY cyclobenzaprine 10 mg tablet 10 mg PO TID PRN (Reason: muscle spasm) Qty: 30 0RF lisinopril-hydrochlorothiazide 20-25 mg tablet See Rx Instructions .ROUTE .COMPLEX Qty: 90 3RF Dose Instruction: Take 1 tablet by mouth once daily Rx Instructions: Take 1 tablet by mouth once daily levofloxacin 500 mg tablet 500 mg PO DAILY Qty: 10 0RF albuterol sulfate [ProAir HFA] 90 mcg/actuation HFA aerosol inhaler 2 puff inhalation Q6H PRN (Reason: shortness of breath or wheezing) Qty: 8.5 6RF benzonatate 100 mg capsule 100 mg PO TID PRN (Reason: cough) Qty: 30 2RF azithromycin 250 mg tablet See Rx Instructions PO .COMPLEX Qty: 6 0RF Rx Instructions: For 250 mg dose pack: take 500 mg today (day 1), then 250 mg for 4 days (days 2-5) PO prednisone 20 mg tablet 20 mg PO DAILY Qty: 5 0RF amlodipine 10 mg tablet 10 mg PO DAILY Qty: 90 3RF atorvastatin 20 mg tablet 20 mg PO BEDTIME Qty: 90 3RF timolol maleate 0.5 % drops 1 drp ophthalmic (eye) BEDTIME Rx Instructions: both eyes Aleve 220 mg Tablet 220 mg PO Q12H PRN (Reason: Pain) Nitrostat 0.4 mg Tablet, Sublingual 0.4 mg SUBLINGUAL Q5M PRN (Reason: Chest Pain) Rx Instructions: do not exceed 3 doses per episode Discharge Orders: Discharge ED (Routine); Ordered 04/16/24 Ordered By: Guillermo Obrien Referrals: Simon Mancera MD [Primary Care Provider] - 1-3 days Patient Instructions: Fever in Adults (ED), Opioid Safety, Pain Management Activity Restrictions/Additional Instructions: Treat fever accordingly with Tylenol, etc. Stay hydrated. Antibiotics as directed. See your doctor tomorrow as scheduled. Return to the emergency department for fever despite 3-4 more doses of antibiotics, worsening mental status, abdominal symptoms, shortness of breath, other concerning symptoms despite treatment. Make sure your doctor knows tomorrow that a tick panel has been sent for follow-up. Coding Level of Care Code ED Diesel Dinkey Operator for Shawn Martinez
[2024-04-16 16:30] VITALS: BP 119/57; PULSE 64; O2SAT 96
[2024-04-16 16:33] LABS: Alanine Aminotransferase 55 U/L (0-41); Albumin Level 4.1 g/dL (3.5-5.2); Alkaline Phosphatase 49 U/L (40-130); Anion Gap 16.2 (5-19); Aspartate Amino Transferase 64 U/L (0-40); Blood Urea Nitrogen 9 mg/dL (8-23); Calcium 8.4 mg/dL (8.5-10.5); Carbon Dioxide 24 mmol/L (22-29); Chloride 101 mmol/L (98-107); Creatinine Clr Calc Pharmacy 81.1669; Globulin 3.1 g/dL (1.3-4.6); Glucose 124 mg/dL (65-115); Osmolality Calculated 284 mOsm/kg (285-295); Potassium 4.2 mmol/L (3.5-5.1); Sodium 137 mmol/L (136-145); Total Bilirubin 0.9 mg/dL (0.15-1.2); Total Protein 7.2 g/dL (6.6-8.7)
[2024-04-16 16:34] LABS: Lactic Sepsis W/Reflex 1.6 mmol/L (0.5-2.2)
[2024-04-16 16:45] LABS: SARS Covid-2 Antigen negative (Negative)
[2024-04-16 17:00] VITALS: BP 117/51; PULSE 62; O2SAT 95
[2024-04-16 17:30] VITALS: BP 128/59; PULSE 62; O2SAT 97
[2024-04-16] MEDS: acetaminophen 325 mg Tablet 650 MG PO (17:31)
[2024-04-16 18:20] LABS: Glucose Urine UA Norm (Normal); Ketones Urine 1+ (Negative); Protein Urine Neg (Negative); Urine Appearance Clear (CLEAR); Urine Color Yellow (Yellow); pH Urine 5 (5-7)
[2024-04-16 18:21] LABS: Add Urine Culture? No; Add Urine Microscopic? YES; Bacteria Urine TRACE /hpf; Bilirubin Urine 1+ (Negative); Blood Urine 2+ (Negative); Leukocyte Esterase Urine Negative (Negative); Mucus Urine 1+ /hpf; Nitrate Urine Negative (Negative); RBC Urine 0-4 /hpf (0-2); Urobilinogen Urine 1 mg/dL (Negative)
[2024-04-16 18:30] VITALS: BP 118/48; PULSE 58; O2SAT 98
[2024-04-16] MEDS: doxycycline 100 mg Tablet PO (19:00)
[2024-04-16 19:05] VITALS: PULSE 58; RESP 16; O2SAT 96
[2024-04-18 13:30] LABS: Lyme AB Screen <0.90 index
[2024-04-20 17:30] LABS: E. Chaffeensis AB IGG <1:64; E. Chaffeensis AB IGM <1:20
[2024-04-22 16:55] LABS: RMSF IGG NOT DETECTED; RMSF IGM NOT DETECTED
== END 2024-04-16 19:03 | disposition home or self-care (01) ==
PROVIDERS: Emergency Medicine; Emergency Provider Emergency Medicine; PCP Family Medicine
DX: R50.9 Fever, unspecified (principal); I10 Essential (primary) hypertension; E78.00 Pure hypercholesterolemia, unspecified; Z79.899 Other long term (current) drug therapy; Z86.73 Personal history of transient ischemic attack (TIA), and cerebral infarction without residual deficits
CPT/HCPCS: 36415; 71045; 80053; 81001; 83605; 85025; 86618; 86666; 86757; 87040; 87426; 99284

== ENCOUNTER → 2024-04-28 12:31 | Outpatient (BNVA) | payer MEDICARE, OTHER, SELFPAY | PROVIDERS: PCP Family Medicine; Visit Provider Family Medicine | DX: Z51.81 Encounter for therapeutic drug level monitoring (principal) | CPT/HCPCS: 80053; 85025 ==

== ENCOUNTER 2024-05-03 14:59 | Emergency (ER) | payer MEDICARE, OTHER, SELFPAY ==
[2024-05-03 15:06] VITALS: BP 127/69; PULSE 54; RESP 18; TEMP 36.6; O2SAT 97
[2024-05-03 15:27] LABS: Basophils # 0.1 10^3/uL (0.0-0.1); Basophils % 0.9 %; Eosinophils # 0.2 10^3/uL (0.0-0.8); Hematocrit 42.9 % (37-53); Lymphocytes # 3.2 10^3/uL (0.8-4.8); Lymphocytes % 38.7 %; Mean Corpuscular HGB Conc 33.6 g/dL (30-55); Mean Corpuscular Hemoglobin 31.9 pg (27-33); Mean Corpuscular Volume 95.1 fl (82-101); Mean Platelet Volume 10.5 fL (7.4-10.4); Monocytes # 0.5 10^3/uL (0.2-0.9); Monocytes % 6.1 %; Neutrophils # 4.26 10^3/uL (1.8-7.7); Neutrophils % 52.1 %; Nucleated Red Blood Cells % 0 %; Platelet Count 185 10^3/cmm (157-399); Red Blood Count 4.51 10^6/uL (3.85-5.65); White Blood Count 8.17 10^3/uL (3.29-11.43)
--- NOTE | 2024-05-03 15:38 | CTR_ITS ---
PROCEDURE INFORMATION: Exam: CT Abdomen And Pelvis Without Contrast Exam date and time: 05/03/2024 4:00 PM Age: 78 years old Clinical indication: Abdominal pain; Prior surgery; Surgery date: 6+ months; Surgery type: Gb; Additional info: Right flank pain TECHNIQUE: Imaging protocol: Computed tomography of the abdomen and pelvis without contrast. Radiation optimization: All CT scans at this facility use at least one of these dose optimization techniques: automated exposure control; mA and/or kV adjustment per patient size (includes targeted exams where dose is matched to clinical indication); or iterative reconstruction. COMPARISON: CR XR hip RT 2-3V wo/w pel* [id number] 07/27/2019 2:18 PM RADIATION DOSE METRICS: Total DLP (mGy-cm): 795.5 FINDINGS: Lungs: No significant infiltrate or effusion is seen within the visualized lung bases. Diaphragm: Tiny hiatal hernia. Liver: Normal. No mass. Gallbladder and biliary ducts: Normal. No calcified stones. No ductal dilation. Pancreas: Normal. No ductal dilation. Spleen: Normal. No splenomegaly. Adrenal glands: Normal. No mass. Kidneys and ureters: Several tiny nonobstructing renal calculi within the left kidney and a solitary tiny nonobstructing renal calculus within the right kidney. No findings of ureteral calculus or obstructive uropathy. Mild age-related perinephric stranding bilaterally. Kidneys appear unremarkable otherwise for unenhanced exam. Stomach and bowel: No bowel dilatation or obstruction. Mid right colon is not well distended limiting its evaluation. Scattered colonic diverticulosis without diverticulitis or focal inflammatory change. Qqzu-be-hithlogo stool content in the colon. Appendix: The appendix is visualized and no evidence of appendicitis. Intraperitoneal space: No free fluid or ascites or free air. Vasculature: Atherosclerotic vascular calcification with nonaneurysmal abdominal aorta. Lymph nodes: No significant periaortic or retroperitoneal lymphadenopathy. Urinary bladder: Urinary bladder is not well distended and otherwise unremarkable for unenhanced exam. Reproductive: Mild prostate enlargement on the base of the urinary bladder. Bones/joints: Degenerative bony change, particularly lumbar spine, with slight spondylolisthesis L4-L5. Soft tissues: Tiny umbilical hernia of fat. CT/CT kidney stone [id number] IMPRESSION: 1. Several tiny nonobstructing renal calculi within the left kidney and a solitary tiny nonobstructing renal calculus within the right kidney indicating mild nephrolithiasis. No findings of ureteral calculus or obstructive uropathy. 2. Scattered colonic diverticulosis without diverticulitis. Sibn-hk-szzxiqoo stool content in the colon. Incompletely distended mid right colon limits its evaluation. 3. Mild prostate enlargement on the base of the urinary bladder.
[2024-05-03 15:39] VITALS: PULSE 49; O2SAT 98
--- NOTE | 2024-05-03 15:43 | ED_ITS ---
HPI - Abdominal Pain 2 General: Chief Complaint: Abdominal Pain Stated Complaint: back pain, nausea Time Seen by Provider: 05/03/24 15:38 History of Present Illness: 78-year-old male patient comes in today for with complaints of right flank pain radiating into his lower abdomen. Patient thinks it is a kidney stone. Patient had similar events in the past. Patient appears nontoxic. Patient appears in mild pain. Patient takes medications for high blood pressure and cholesterol. Patient does have nitro for chest pain. Review of Systems 2 General: Reports: 10 or more systems reviewed and unremarkable except in HPI and below PFSH ED 2 PFSH: Medical History Verruca vulgaris Hypercholesteremia Hypertension History of TIAs 2012, 02/2021 Surgical History History of cholecystectomy Hx of cataract surgery Hx of lumbosacral spine surgery Cervical vertebral fusion History of right knee joint replacement Social History Smoking and tobacco/nicotine status: never used tobacco/nicotine Alcohol intake: current Substance/Drug Use: never Current occupation: [employer] to fill in as needed Physical Exam 2 Const: COMMON NORMALS: alert HENMT: COMMON NORMALS: normocephalic HEAD & SCALP: normocephalic Neck/C-Spine: COMMON NORMALS: full ROM Resp: COMMON NORMALS: normal respiratory effort and clear to auscultation bilaterally AUSCULTATION: clear to auscultation bilaterally Cardio: COMMON NORMALS: regular rate and regular rhythm RATE: regular rate RHYTHM: regular rhythm GI: COMMON NORMALS: Soft to palpation PALPATION: Yes Soft to palpation and Yes Tenderness to palpation present (GI) Details: RUQ : COMMON NORMALS: Yes no CVA tenderness BLADDER/KIDNEY EXAM: Yes no CVA tenderness Back/Pelvis: COMMON NORMALS: no CVA tenderness Extremity: COMMON NORMALS: normal to inspection Neuro: SENSORIUM/ORIENTATION: Yes alert Skin: COMMON NORMALS: turgor normal GENERAL SKIN EXAM: turgor normal Course 2 Vital Signs: Vital signs: Vital Signs Temperature 97.8 F 05/03/24 15:06 Pulse Rate 49 L 05/03/24 17:09 Respiratory Rate 18 05/03/24 15:06 Blood Pressure 127/69 05/03/24 15:06 Pulse Oximetry 97 05/03/24 17:09 Oxygen Delivery Me thod Room Air 05/03/24 15:06 MDM - Abdominal Pain Medical Decision Making 78-year-old male patient comes in today with right flank pain. Patient reports the pain reminds him of when he has had a kidney stone in the past. On exam patient appears nontoxic. Patient appears no acute distress. Respirations are even lungs are clear to auscultation. Vital signs are normal. Differential diagnosis includes not limited to renal calculi, UTI, appendicitis, muscle strain, diverticulitis. CT noted no obstructing renal calculi. Patient did have some diverticulosis without sign of diverticulitis. And some mild prostate enlargement. CBC, CMP, and urinalysis were unremarkable. Believe patient might have some low back pain or lumbar strain. I recommended patient monitor for worsening symptoms such as high fever or changes in bowel movements or nausea and vomiting. Patient reports understanding agreed to plan. Lab Data 05/03/24 15:20 05/03/24 15:20 Labs/Radiology: Radiology Impressions Abdomen/Pelvis CT 05/03/24 15:38 IMPRESSION: 1. Several tiny nonobstructing renal calculi within the left kidney and a solitary tiny nonobstructing renal calculus within the right kidney indicating mild nephrolithiasis. No findings of ureteral calculus or obstructive uropathy. 2. Scattered colonic diverticulosis without diverticulitis. Xkgd-ou-uuejpojm stool content in the colon. Incompletely distended mid right colon limits its evaluation. 3. Mild prostate enlargement on the base of the urinary bladder. Laboratory Results WBC 8.17 10^3/uL (3.29-11.43) 05/03/24 15:20 RBC 4.51 10^6/uL (3.85-5.65) 05/03/24 15:20 Hgb 14.40 g/dL (11.27-16.99) 05/03/24 15:20 Hct 42.9 % (37-53) 05/03/24 15:20 MCV 95.1 fl (82-101) 05/03/24 15:20 MCH 31.9 pg (27-33) 05/03/24 15:20 MCHC 33.6 g/dL (30-55) 05/03/24 15:20 RDW 14.0 % (12.1-15.1) 05/03/24 15:20 Plt Count 185 10^3/cmm (157-399) 05/03/24 15:20 MPV 10.5 fL (7.4-10.4) H 05/03/24 15:20 Neut % (Auto) 52.1 % 05/03/24 15:20 Lymph % (Auto) 38.7 % 05/03/24 15:20 [place] % (Auto) 6.1 % 05/03/24 15:20 Eos % (Auto) 2.0 % 05/03/24 15:20 Baso % (Auto) 0.9 % 05/03/24 15:20 Neut # (Auto) 4.26 10^3/uL (1.8-7.7) 05/03/24 15:20 Lymph # (Auto) 3.2 10^3/uL (0.8-4.8) 05/03/24 15:20 [place] # (Auto) 0.5 10^3/uL (0.2-0.9) 05/03/24 15:20 Eos # (Auto) 0.2 10^3/uL (0.0-0.8) 05/03/24 15:20 Baso # (Auto) 0.1 10^3/uL (0.0-0.1) 05/03/24 15:20 Nucleated RBC % (auto) 0 % 05/03/24 15:20 Nucleated RBCs # 0.0 /100WBC 05/03/24 15:20 Sodium 141 mmol/L (136-145) 05/03/24 15:20 Potassium 3.9 mmol/L (3.5-5.1) 05/03/24 15:20 Chloride 106 mmol/L (98-107) 05/03/24 15:20 Carbon Dioxide 26 mmol/L (22-29) 05/03/24 15:20 Anion Gap 12.9 (5-19) 05/03/24 15:20 BUN 12 mg/dL (8-23) 05/03/24 15:20 Creatinine 0.9 mg/dL (0.7-1.2) 05/03/24 15:20 GFR Calculation Not Reportable 05/03/24 15:20 Glucose 106 mg/dL (65-115) 05/03/24 15:20 Calculated Osmolality 292 mOsm/kg (285-295) 05/03/24 15:20 Calcium 8.5 mg/dL (8.5-10.5) 05/03/24 15:20 Total Bilirubin 0.7 mg/dL (0.15-1.2) 05/03/24 15:20 AST 23 U/L (0-40) 05/03/24 15:20 ALT 19 U/L (0-41) 05/03/24 15:20 Alkaline Phosphatase 50 U/L (40-130) 05/03/24 15:20 Total Protein 7.2 g/dL (6.6-8.7) 05/03/24 15:20 Albumin 4.0 g/dL (3.5-5.2) 05/03/24 15:20 Globulin 3.2 g/dL (1.3-4.6) 05/03/24 15:20 Lipase 26 U/L (13-60) 05/03/24 15:20 Urine Color Yellow (Yellow) 05/03/24 17:32 Urine Appearance Clear (CLEAR) 05/03/24 17:32 Urine pH 7.5 (5-7) 05/03/24 17:32 Ur Specific [place] 1.008 (1.005-1.030) 05/03/24 17:32 Urine Protein Negative (Negative) 05/03/24 17:32 Urine Glucose (UA) Negative (Normal) 05/03/24 17:32 Urine Ketones Negative (Negative) 05/03/24 17:32 Urine Blood Negative (Negative) 05/03/24 17:32 Urine Nitrate Negative (Negative) 05/03/24 17:32 Urine Bilirubin Negative (Negative) 05/03/24 17:32 Prot Sulfosalicylic Acd Cancelled 05/03/24 15:10 Urine Urobilinogen 0.2 mg/dL (Negative) 05/03/24 17:32 Ur Leukocyte Esterase Negative (Negative) 05/03/24 17:32 Urine RBC Cancelled 05/03/24 15:10 Urine WBC Cancelled 05/03/24 15:10 Ur Squamous Epith Cells Cancelled 05/03/24 15:10 Ur Transition Epith Cell Cancelled 05/03/24 15:10 Ur Renal Epithelial Cell Cancelled 05/03/24 15:10 Calcium Oxalate Crystal Cancelled 05/03/24 15:10 Uric Acid Crystals Cancelled 05/03/24 15:10 Triple Phos Crystals Cancelled 05/03/24 15:10 Other Crystals Cancelled 05/03/24 15:10 Amorphous Sediment Not Reportable 05/03/24 17:32 Urine Bacteria Cancelled 05/03/24 15:10 Hyaline Casts Cancelled 05/03/24 15:10 Fine Granular Casts Cancelled 05/03/24 15:10 Coarse Granular Casts Cancelled 05/03/24 15:10 RBC Casts Cancelled 05/03/24 15:10 Other Casts Cancelled 05/03/24 15:10 Urine Mucus Cancelled 05/03/24 15:10 Urine Trichomonas Cancelled 05/03/24 15:10 Urine Yeast Cancelled 05/03/24 15:10 Urine Sperm Cancelled 05/03/24 15:10 Ur Oval Fat Bodies Cancelled 05/03/24 15:10 All radiology interpretation(s) finalized by discharge Discharge Plan Discharge Patient Disposition: Home Clinical Impression: Acute right flank pain Condition: Stable Prescriptions: No Action aspirin [Adult Low Dose Aspirin] 81 mg tablet,delayed release (DR/EC) 81 mg PO DAILY lisinopril-hydrochlorothiazide 20-25 mg tablet See Rx Instructions .ROUTE .COMPLEX Qty: 90 3RF Dose Instruction: Take 1 tablet by mouth once daily Rx Instructions: Take 1 tablet by mouth once daily benzonatate 100 mg capsule 100 mg PO TID PRN (Reason: cough) Qty: 30 2RF amlodipine 10 mg tablet 10 mg PO DAILY Qty: 90 3RF atorvastatin 20 mg tablet 20 mg PO BEDTIME Qty: 90 3RF timolol maleate 0.5 % drops 1 drp ophthalmic (eye) BEDTIME Rx Instructions: both eyes Aleve 220 mg Tablet 220 mg PO Q12H PRN (Reason: Pain) Nitrostat 0.4 mg Tablet, Sublingual 0.4 mg SUBLINGUAL Q5M PRN (Reason: Chest Pain) Rx Instructions: do not exceed 3 doses per episode Discharge Orders: Discharge ED (Routine); Ordered 05/03/24 Ordered By: Irving Bella Referrals: Simon Mancera MD [Primary Care Provider] - Patient Instructions: Acute Low Back Pain (ED) Activity Restrictions/Additional Instructions: Thank you for choosing [facility] for your healthcare needs today. Please realize that you were seen in the emergency department and that we are providing you with an emergency medical screening exam and this may not be a complete and all exclusive of all testing and/or medical workup we may need to determine your element or severity of your illness. It is very important that you follow-up as instructed with your primary care provider or specialist for the additional evaluation and to discuss your medical treatment plan. You may return to the emergency department should you have concerns or if your condition changes or worsens in any way. Coding Level of Care Code ED External Grinder for Shawn Martinez
[2024-05-03 15:47] LABS: Alanine Aminotransferase 19 U/L (0-41); Alkaline Phosphatase 50 U/L (40-130); Anion Gap 12.9 (5-19); Aspartate Amino Transferase 23 U/L (0-40); Blood Urea Nitrogen 12 mg/dL (8-23); Calcium 8.5 mg/dL (8.5-10.5); Carbon Dioxide 26 mmol/L (22-29); Chloride 106 mmol/L (98-107); Globulin 3.2 g/dL (1.3-4.6); Glucose 106 mg/dL (65-115); Lipase 26 U/L (13-60); Osmolality Calculated 292 mOsm/kg (285-295); Potassium 3.9 mmol/L (3.5-5.1); Sodium 141 mmol/L (136-145); Total Bilirubin 0.7 mg/dL (0.15-1.2); Total Protein 7.2 g/dL (6.6-8.7)
[2024-05-03 16:09] VITALS: PULSE 53; O2SAT 95
[2024-05-03 16:39] VITALS: PULSE 53; O2SAT 95
[2024-05-03 17:09] VITALS: PULSE 49; O2SAT 97
[2024-05-03 17:37] LABS: Charge for UA Resulting for Rev
[2024-05-03 17:41] LABS: Bilirubin Urine Negative (Negative); Blood Urine Negative (Negative); Glucose Urine UA Negative (Normal); Ketones Urine Negative (Negative); Leukocyte Esterase Urine Negative (Negative); Nitrate Urine Negative (Negative); Protein Urine Negative (Negative); Specific Gravity, Urine 1.008 (1.005-1.030); Urine Appearance Clear (CLEAR); Urine Color Yellow (Yellow); Urobilinogen Urine 0.2 mg/dL (Negative); pH Urine 7.5 (5-7)
== END 2024-05-03 18:19 | disposition home or self-care (01) ==
PROVIDERS: Emergency Medicine; Emergency Provider Nurse Practitioner Family; PCP Family Medicine
DX: R10.9 Unspecified abdominal pain (principal); Z79.82 Long term (current) use of aspirin; I10 Essential (primary) hypertension; Z86.73 Personal history of transient ischemic attack (TIA), and cerebral infarction without residual deficits
CPT/HCPCS: 36415; 74176; 80053; 81003; 81015; 83690; 85025; 99284

== ENCOUNTER 2025-05-01 16:57 | Outpatient (CLI) | payer MEDICARE, OTHER, SELFPAY ==
--- NOTE | 2025-05-01 17:02 | XR_ITS ---
WS: [id number] Left knee, 3 views, 05/01/2025 Clinical Data: Left knee pain Comparison: AP both knees, left knee, 03/03/2022 Findings: There is medial joint compartment narrowing. There is a spur of the lateral tibial plateau. The posterior left patella shows spurring and there is an anterior superior patellar spur. There is an old fracture of the proximal left tibia. There are vascular calcifications. XR/XR knee LT 3V* [id number] Impression: 1. Osteoarthritis with medial joint compartment narrowing and posterior patella irregularity. 2. Old fracture of proximal left fibula.
== END 2025-05-01 16:58 | disposition home or self-care (01) ==
LOC: RAD 17:00
PROVIDERS: PCP Family Medicine; Visit Provider Family Medicine
DX: M25.562 Pain in left knee (principal); M17.12 Unilateral primary osteoarthritis, left knee; S82.832D Other fracture of upper and lower end of left fibula, subsequent encounter for closed fracture with routine healing; X58.XXXD Exposure to other specified factors, subsequent encounter; M76.52 Patellar tendinitis, left knee; I70.292 Other atherosclerosis of native arteries of extremities, left leg; M25.762 Osteophyte, left knee
CPT/HCPCS: 73562

== ENCOUNTER → 2025-05-25 07:53 | Outpatient (BNVA) | payer MEDICARE, OTHER, SELFPAY | PROVIDERS: PCP Family Medicine; Visit Provider Physician Assistant | DX: M17.12 Unilateral primary osteoarthritis, left knee (principal); M23.92 Unspecified internal derangement of left knee; M23.301 Other meniscus derangements, unspecified lateral meniscus, left knee | CPT/HCPCS: 73560; 73565; 99203 ==

== ENCOUNTER 2025-06-08 13:28 | Outpatient (CLI) | payer MEDICARE, OTHER, SELFPAY ==
--- NOTE | 2025-06-08 13:45 | MR_ITS ---
WS: [id number] MRI LEFT KNEE NONCONTRAST TECHNIQUE: Axial PD, coronal PD fat sat, coronal PD, sagittal PD, and sagittal PD fat-sat images obtained. CLINICAL INFORMATION: injury of knee COMPARISON: None. FINDINGS: Moderate tricompartmental arthritis. Hypertrophic changes along the joint line. Hypertrophic patella. Distal quadriceps and patella tendons are intact. Grade IV chondromalacia patella. Medial and lateral patellar retinacula are intact. ACL and PCL appear intact. Diffuse edema partially visualized in the proximal fibula. Oblique slightly comminuted fracture involving the proximal fibula extending off the zxqzs-ho-jeze with diffuse edema. This has an acute appearance. This can be further evaluated with CT if indicated. Medial and lateral collateral ligaments appear intact. Normal popliteal fossa. Chronic intrasubstance signal abnormality posterior horn medial meniscus. Horizontal and radial tears involving the posterior horn medial meniscus extending to the articular surface. MR/MR knee LT wo con* [id number] IMPRESSION: 1. Partially visualized slightly comminuted proximal fibular shaft fracture wi th edema extending off the gsijt-qj-ooue inferiorly. This has an acute appearan ce. 2. Moderate tricompartment arthritis. 3. ACL and PCL appear intact. 4. Lateral collateral ligament appears intact. 5. Grade IV chondromalacia patella. 6. Small horizontal and radial tear posterior horn medial meniscus Outbridge grading: grade IV: full-thickness cartilage loss with underlying bone reactive changes
== END 2025-06-08 13:29 | disposition home or self-care (01) ==
LOC: RAD 13:29
PROVIDERS: PCP Family Medicine; Visit Provider Physician Assistant
DX: S82.455A Nondisplaced comminuted fracture of shaft of left fibula, initial encounter for closed fracture (principal); M17.12 Unilateral primary osteoarthritis, left knee; M22.42 Chondromalacia patellae, left knee; S83.242A Other tear of medial meniscus, current injury, left knee, initial encounter; X58.XXXA Exposure to other specified factors, initial encounter
CPT/HCPCS: 73721

== ENCOUNTER → 2025-06-19 16:10 | Outpatient (BNVA) | payer MEDICARE, OTHER, SELFPAY | PROVIDERS: PCP Family Medicine; Visit Provider Family Medicine | DX: R10.9 Unspecified abdominal pain (principal); Z51.81 Encounter for therapeutic drug level monitoring; R53.81 Other malaise; R53.83 Other fatigue; N40.0 Benign prostatic hyperplasia without lower urinary tract symptoms | CPT/HCPCS: 80053; 84153; 84439; 84443; 85025; 86141; 87426 ==

== ENCOUNTER 2025-06-20 11:23 | Outpatient (CLI) | payer MEDICARE, OTHER, SELFPAY ==
--- NOTE | 2025-06-20 11:26 | XR_ITS ---
WS: [id number] XR chest 2V* [id number] REASON FOR EXAM: Crackles in lung bases/cough FINDINGS: Compared to the previous examination of 04/16/2024, there are coarse reticular interstitial lung opacities in the left lower lung. There are subtle reticular interstitial opacities in the right lower lung. There is parabronchial cuffing in both lower lungs. The chronicity of these changes is uncertain. Could indicate acute or subacute pneumonitis. Normal heart size without significant pulmonary venous hypertension make it less likely this represents pulmonary edema. Chest is otherwise unchanged. XR/XR chest 2V* [id number] IMPRESSION: Pulmonary parenchymal abnormality as described and discussed above.
== END 2025-06-20 11:24 | disposition home or self-care (01) ==
LOC: RAD 11:23
PROVIDERS: PCP Family Medicine; Visit Provider Family Medicine
DX: R05.9 Cough, unspecified (principal); M25.562 Pain in left knee; R09.89 Other specified symptoms and signs involving the circulatory and respiratory systems; S82.832A Other fracture of upper and lower end of left fibula, initial encounter for closed fracture; X50.9XXA Other and unspecified overexertion or strenuous movements or postures, initial encounter; M17.12 Unilateral primary osteoarthritis, left knee; Z01.89 Encounter for other specified special examinations
CPT/HCPCS: 71046; 73560; 73565; 99213

== ENCOUNTER 2025-08-09 14:42 | Outpatient (CLI) | payer OTHER, MEDICARE, SELFPAY ==
--- NOTE | 2025-08-09 15:00 | CT_ITS ---
WS: [id number] CT chest w con* [id number] HISTORY: Cough TECHNIQUE: Axial imaging performed through the thorax. Coronal and sagittal reformats are submitted. All CT scans at [facility] use at least one of these dose optimization techniques: automated exposure control; mA and/or kV adjustment per patient size (includes targeted exams where dose is matched to clinical indication); or iterative reconstruction. CONTRAST: Omnipaque 350; 100 mL IV. DLP: 413.03 mGy.cm COMPARISON: Chest radiograph 06/20/2025 Lungs and central airway: Lungs are normally aerated. Bilateral upper and lower lobe peripheral areas of interstitial thickening and prominence in a few areas of groundglass opacification. In some areas there is subpleural sparing. In other areas the changes extend to the pleura. There is no area of dense consolidation. Mild reticular nodularity at the RIGHT apex. No honeycombing or bronchiectasis identified on this CT. Pleura: Normal. No pleural effusion. Heart and pericardium: Normal size heart with no pericardial effusion. Mediastinum and ajith: No mediastinum or hilar adenopathy. Vessels: Mild atherosclerosis aorta. Normal size pulmonary artery. Chest wall and lower neck: No soft tissue masses. Upper abdomen: Prior cholecystectomy. Normal adrenal glands. Osseous structures: No destructive process. CT/CT chest w con* [id number] IMPRESSION: 1. Diffuse upper and lower lobe peripheral interstitial lung disease with a fe w areas of nodular reticulation and groundglass. 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 Evaluation by pulmonology may be of benefit. 2. No pneumonia. 3. Normal size heart. 4. No mediastinal or hilar adenopathy. 5. Prior cholecystectomy.
[2025-08-09] MEDS: iohexol 350 mg/mL 500 mL Btl (per mL) IV (15:40)
== END 2025-08-09 14:43 | disposition home or self-care (01) ==
LOC: RAD 14:43
PROVIDERS: PCP Family Medicine; Visit Provider Family Medicine
DX: R06.00 Dyspnea, unspecified (principal); R05.9 Cough, unspecified; J84.9 Interstitial pulmonary disease, unspecified; Z90.49 Acquired absence of other specified parts of digestive tract; I70.0 Atherosclerosis of aorta; R91.8 Other nonspecific abnormal finding of lung field
CPT/HCPCS: 71260

== ENCOUNTER 2025-08-15 10:26 | Outpatient (CLI) | payer MEDICARE, OTHER, SELFPAY ==
--- NOTE | 2025-08-15 | ECG_ITS ---
[facility] Test Date: 2025-08-15 Pat Name: Judson Wellington Department: Room: Gender: Male Change Analyst: : 1945 Requested By: Simon Archer Order Number: [id number] Whitlock MD: Tra Iverson M.D. Interpretive Statements Lexiscan procedure: A total of 0.4 mg of Lexiscan was infused over 20 seconds. The stress phase was continued for a total of 5 minutes. Sestamibi was injected 20 seconds after the Lexiscan infusion. Findings:The patient's resting blood pressure was 167/80 mmHg with a heart rate of 53 bpm. During the stress test the patient's blood pressure decreased to a low of 129/63 mmHg and the heart rate increased to a maximum of 70 bpm. At the end of recovery the patient's blood pressure was 165/73 with a heart rate of 66 bpm. The baseline EKG revealed sinus bradycardia with a heart rate of 53 bpm with poor R wave progression from lead V2 to lead V3. There are no ST or T wave changes or arrhythmias with stress. Conclusion: 1. Normal EKG response to Lexiscan infusion 2. No Lexiscan induced chest pain or cardiac arrhythmia. 3. Normal blood pressure and heart rate response. 4. Nuclear myocardial perfusion scan pending; see separate report. Electronically Signed On 08-15-2025 19:16:16 CASK MAKER by Tra Iverson M.D. [email or web address]
[2025-08-15 10:44] VITALS: BMI 26.5
--- NOTE | 2025-08-15 10:45 | NMCV_ITS ---
NM yayo perf SPECT r/s* [id number] Judson Wellington Age: 80 Gender: M : 1945 Exam Date: 08/15/2025 11:31 Ordering Phys: Simon Mancera MD Technologist: MIKE Whitney Exam Location: [facility] Indications: cp STRESS TEST Please see separate stress test report in [facility] for full findings IMAGE PROTOCOL Rest/Stress 1 Lexiscan Day Radiopharmaceutical Dose (mCi) Administration Site Administered by Rest: Tc-99m 10.3 IV May Hassan, DIRECTOR OF CONVENTION SERVICES Sestamibi Stress:Tc-99m 32.7 IV May Siegelgle, DIRECTOR OF CONVENTION SERVICES Sestamibi Rest: 15-Aug-2025 60 Discovery 630 Stress: 15-Aug-2025 30 Discovery 630 0.4mg Lexiscan. Images obtained in supine and prone position. SPECT RESULTS Technical Quality: Good Raw Data Analysis: Normal Image Corrections: No attenuation or motion correction applied Summed Stress Score: 1 Summed Rest Score: 0 Summed Difference Score: 1 PERFUSION FINDINGS SPECT images demonstrate homogeneous tracer distribution throughout the myocardium. FUNCTIONAL RESULTS (calculated via Gated SPECT) Stress Image LV EF (%): 66 Stress EDV (mL):101 TID: 0.82 Stress ESV (mL):34 FUNCTIONAL FINDINGS: There is normal left ventricular systolic function. IMPRESSIONS Myocardial perfusion imaging is normal. There is normal left ventricular systolic function with EF of 66%. Tra Iverson MD, FACC (Electronically Signed) Final Date: 15 August 2025 18:11 S
[2025-08-15 12:14] VITALS: BP 165/73; PULSE 65
== END 2025-08-15 10:27 | disposition home or self-care (01) ==
LOC: CDL 10:29
PROVIDERS: PCP Family Medicine; Visit Provider Family Medicine
DX: R07.9 Chest pain, unspecified (principal); R06.00 Dyspnea, unspecified
CPT/HCPCS: 36415; 78452; 93017; 96374; A9500; J2785

== ENCOUNTER → 2025-08-23 15:09 | Outpatient (BNVA) | payer MEDICARE, OTHER, SELFPAY | PROVIDERS: PCP Family Medicine; Referring Provider Family Medicine; Visit Provider Internal Medicine | DX: J84.10 Pulmonary fibrosis, unspecified (principal); Z87.891 Personal history of nicotine dependence; J44.9 Chronic obstructive pulmonary disease, unspecified; J84.9 Interstitial pulmonary disease, unspecified; J44.1 Chronic obstructive pulmonary disease with (acute) exacerbation | CPT/HCPCS: 36415; 82103; 82164; 85651; 86038; 86431; 99204; Q3014 ==

== ENCOUNTER 2025-10-01 12:37 | Outpatient (CLI) | payer MEDICARE, OTHER, SELFPAY | END 2025-10-01 12:38 | disposition home or self-care (01) | LOC: RT 12:38 | PROVIDERS: PCP Family Medicine; Visit Provider Internal Medicine | DX: J44.1 Chronic obstructive pulmonary disease with (acute) exacerbation (principal) | CPT/HCPCS: 94010; 94618 ==